=== PATIENT | female | born 1990 | race Caucasian/White ===

== ENCOUNTER 2016-09-08 08:19 | Emergency (ER) | payer MEDICAID, OTHER ==
[~2016-09-08] VITALS: Ht 170.2 cm; Wt 62.0 kg
[~2016-09-08 08:19] MED LIST: LO LTAB; METO10TA PO; OMEP40CA2 PO; PREN1PAK2 PO
[2016-09-08 08:21] VITALS: BP 177/94; PULSE 79; RESP 17; TEMP 97.9; O2SAT 98
--- NOTE | 2016-09-08 08:55 | PD ---
HPI Chief Complaint: Related Problem Time Seen by Provider: 08:28 Travel History International Travel<30 days: No Contact w/Intl Traveler<30days: No Traveled to known affect area: No History of Present Illness HPI This is a 26-year-old Ab1 who is at 10 weeks by dates, who presents today with complaints of vaginal bleeding. The patient reports that she and her were having intercourse when she noted blood in her vagina when she went to use the restroom. She reports that she passed some stringy blood as well as a clot. She denies any pelvic cramping. Through records, we note her blood type to be A+. She denies any dysuria, urgency, frequency. She had bleeding previously with her previous . No other complaints time my examination. PFSH Past Medical History Cancer: No Cardiovascular Problems: No Diminished Hearing: No Endocrine: No Gastrointestinal Disorders: No Genitourinary: No Heparin Induced Thrombocytopen: No Immune Disorder: No Implanted Vascular Access Dvce: No Musculoskeletal: No Neurologic: No Psychiatric: No Reproductive: No Respiratory: No Immunizations Current: Yes Pancreatitis: Yes Sickle Cell Disease: No ?: LMP: 06/05/16 : 2 Miscarriage: 2 Past Surgical History Abdominal Surgery: No AICD: No Arteriovenous Shunt: No Cardiac Surgery: No Cholecystectomy: Yes Ear Surgery: No Endocrine Surgery: Yes (GALL BLADDER) Eye Surgery: No Genitourinary Surgery: No Gynecologic Surgery: No Insulin Pump: No Joint Replacement: No Neurologic Surgery: No Oral Surgery: No Pacemaker: No Tonsillectomy: Yes (with adnoids) Tympanostomy Tube: Yes Other Surgery: Yes (pancreatic stent then removed) Social History Alcohol Use: No Tobacco Use: No Substance Use: No Allergies-Medications (Allergen,Severity, Reaction): Coded Allergies: No Known Allergies (Unverified , 04/23/16) Reported Meds & Prescriptions Reported Meds & Active Scripts Active Review of Systems Except as stated in HPI: all other systems reviewed are Neg General / Constitutional: No: Fever, Chills Gastrointestinal: No: Nausea, Vomiting, Abdominal Pain Genitourinary: Positive: Vaginal Bleeding, No: Frequency, Dysuria, Pelvic Pain , Discharge Physical Exam Narrative GENERAL: Well-nourished, well-developed patient. SKIN: Warm and dry. HEAD: Normocephalic. EYES: No scleral icterus. No injection or drainage. NECK: Supple, trachea midline. GASTROINTESTINAL: Abdomen soft, non-tender, nondistended. MUSCULOSKELETAL: No cyanosis, or edema. GENITOURINARY: Normal external genitalia without lesions or erythema. Vaginal vault with small amount of bright blood. Cervical os was closed. Data Data Last Documented VS Vital Signs Date Time Temp Pulse Resp B/P Pulse Ox O2 Delivery O2 Flow Rate FiO2 09/08/16 08:21 97.9 79 17 177/94 98 Orders Beta Hcg (Quant/Titer) (09/08/16 08:45) Complete Blood Count With Diff (09/08/16 08:45) Urinalysis - C+S If Indicated (09/08/16 08:45) Iv Access Insert/Monitor (09/08/16 08:45) Us Pelvis (Ques Pr/Ect)W Trans (09/08/16 09:22) Labs Laboratory Tests Test 09/08/16 08:38 White Blood Count 7.2 TH/MM3 Red Blood Count 4.09 MIL/MM3 Hemoglobin 12.1 GM/DL Hematocrit 34.9 % Mean Corpuscular Volume 85.3 FL Mean Corpuscular Hemoglobin 29.7 PG Mean Corpuscular Hemoglobin 34.8 % Concent Red Cell Distribution Width 12.8 % Platelet Count 246 TH/MM3 Mean Platelet Volume 9.3 FL Neutrophils (%) (Auto) 62.2 % Lymphocytes (%) (Auto) 29.6 % Monocytes (%) (Auto) 4.9 % Eosinophils (%) (Auto) 2.8 % Basophils (%) (Auto) 0.5 % Neutrophils # (Auto) 4.5 TH/MM3 Lymphocytes # (Auto) 2.1 TH/MM3 Monocytes # (Auto) 0.3 TH/MM3 Eosinophils # (Auto) 0.2 TH/MM3 Basophils # (Auto) 0.0 TH/MM3 CBC Comment DIFF FINAL Differential Comment Urine Color YELLOW Urine Turbidity CLEAR Urine pH 8.0 Urine Specific [place] 1.008 Urine Protein NEG mg/dL Urine Glucose (UA) NEG mg/dL Urine Ketones NEG mg/dL Urine Occult Blood MOD Urine Nitrite NEG Urine Bilirubin NEG Urine Urobilinogen LESS THAN 2.0 MG/DL Urine Leukocyte Esterase NEG Urine RBC 94 /hpf Urine WBC 1 /hpf Urine Squamous Epithelial <1 /hpf Cells Urine Bacteria RARE /hpf Microscopic Urinalysis Comment CULT NOT INDICATED Human Chorionic Gonadotropin, 74248 MIU/ML Quant MDM Medical Decision Making Medical Screen Exam Complete: Yes Emergency Medical Condition: Yes Differential Diagnosis Threatened versus incomplete versus missed Narrative Course 18-year-old Ab1, who presents today with complaints of vaginal bleeding. She and her were having intercourse when he noted blood. The patient denies any abdominal cramping. There is no reported dysuria urgency or frequency. The patient had a previous miscarriage in her first . Second was successful. Ultrasound shows a viable intrauterine . There is a subchorionic hemorrhage noted. I discussed this with both patient and her . I stated that this could progress however oftentimes it does not. Recommended pelvic rest until seen by OB physician. Her blood type is Rh+ and therefore she does not need Tabitha. She is instructed to follow up with the OB physician. She is instructed to return if she does any increasing bleeding, abdominal cramps, or any other reason that concerned her. Diagnosis Primary Impression: Threatened miscarriage in early Additional Impression: Subchorionic hemorrhage in first trimester Additional Instructions: Pelvic rest. Follow up with [facility] physician, call Saturday for appointment. Hernia if increased pain, increased bleeding, or any other reason that concerned her. Avoid heavy lifting Disposition: 01 DISCHARGE HOME Condition: Stable Jose F Lee MD Sep 08, 2016 08:55
[2016-09-08 09:09] LABS: AUTOMATED NEUTROPHIL # 4.5 TH/MM3 (1.8-7.7); BASOPHIL % 0.5 % (0.0-2.0); EOSINOPHIL # 0.2 TH/MM3 (0-0.4); EOSINOPHIL % 2.8 % (0.0-4.0); HEMATOCRIT 34.9 % (35.0-46.0); HEMO FLAGS DIFF FINAL; LYMPH % 29.6 % (9.0-44.0); LYMPHOCYTE # 2.1 TH/MM3 (1.0-4.8); MEAN CELL VOLUME 85.3 FL (80.0-100.0); MEAN CORPUSCULAR HEMOGLOBIN 29.7 PG (27.0-34.0); MEAN CORPUSCULAR HGB CONC 34.8 % (32.0-36.0); MONO % 4.9 % (0.0-8.0); NEUT % 62.2 % (16.0-70.0); PLATELET COUNT 246 TH/MM3 (150-450); RED BLOOD COUNT 4.09 MIL/MM3 (4.00-5.30); RED CELL DISTRIBUTION WIDTH 12.8 % (11.6-17.2); WHITE BLOOD COUNT 7.2 TH/MM3 (4.0-11.0)
[2016-09-08 09:15] LABS: BACTERIA, URINE RARE /hpf; BLOOD, URINE MOD (NEG); COMMENT (UR) CULT NOT INDICATED; CULTURE IF INDICATED CULT NOT INDICATED; GLUCOSE,URINE NEG (NEG); KETONE, URINE NEG (NEG); NITRITE,URINE NEG (NEG); SQUAMOUS EPITHELIAL CELL URINE <1 /hpf (0-5); URINE COLOR YELLOW (YELLW/STRAW)
[2016-09-08 09:45] LABS: BETA HCG QUANT 43873 MIU/ML (0-5)
--- NOTE | 2016-09-08 12:48 | RADRPT ---
EXAM DATE/TIME: 09/08/2016 10:49 [facility] COMPARISON: No previous studies available for comparison. INDICATIONS : Bleeding with . LAB(S): Beta-hC MEDICAL HISTORY : . Pancreatitis. Left eye injury. Miscarriage. SURGICAL HISTORY : Tonsillectomy. Cholecystectomy. tympanostomy tubes. Pancreatic stent placement and removal. ENCOUNTER: Initial ACUITY: 1 day PAIN SCORE: 1/10 LOCATION: Bilateral pelvis MEASUREMENTS: UTERUS: 11.5 x 9.2 x 7.3 cm ENDOMETRIAL STRIPE: 4 mm RIGHT OVARY: 2.9 x 1.7 x 2.1 cm LEFT OVARY: 2.8 x 1.7 x 2.0 cm FINDINGS: Gestational sac, yolk sac and pole noted in the uterine cavity. The crown-rump length is approx imately 3.4 cm which corresponds to a gestational age of 10 weeks 2 days. heart tones are demon strated. There is an approximately 3.6 x 2.8 x 3.0 cm heterogeneous fluid collection adjacent to the gestational sac typical of a subacute subchorionic hemorrhage. Ovaries are within normal limits. No free fluid. CONCLUSION: Single, viable intrauterine at 10 weeks 2 days gestational age complicated by a moderate-si zed subchorionic hemorrhage. Normal ovaries. No evidence of ectopic. Roland Farley MD on September 08, 2016 at 12:45 Board Certified Radiologist. This report was verified electronically.
[2016-09-19] MEDS ORDERED: FAMO20TA2 PO (10:13)
[2016-09-19] MEDS ORDERED: PREN1CAP7 PO (10:13)
[2016-11-21] MEDS ORDERED: NITR1CAP36 PO (09:44)
[2017-01-16] MEDS ORDERED: DIFL150T PO (09:59)
== END 2016-09-08 11:40 | disposition home or self-care (01) ==
LOC: NEPC 08:19
DX: O20.0 Threatened abortion (principal); Z3A.10 10 weeks gestation of pregnancy
CPT/HCPCS: 76700; 81001; 84702; 85025

== ENCOUNTER 2016-11-04 18:12 | Emergency (ER) | payer MEDICAID ==
[~2016-11-04 18:12] MED LIST changes: +FAMO20TA2 PO; -LO LTAB; -METO10TA PO; -OMEP40CA2 PO; +PREN1CAP7 PO; -PREN1PAK2 PO
--- NOTE | 2016-11-04 19:02 | PD ---
HPI Chief Complaint Lower abdominal pain and pressure Date Seen: Nov 04, 2016 Time Seen: 18:45 Travel History International Travel<30 Days: No Contact w/Intl Traveler<30Days: No Known Affected Area: No History of Present Illness HPI 26-year-old 2 para 1 at 19+ weeks gestation who has a history of a delivery at 32 weeks. She presented this evening feeling low pressure and was concerned AB this was evidence of early labor. She denies any bleeding , leakage of fluid, vaginal discharge. She reports movement on a daily basis. No dysuria hematuria or frequency. No diarrhea or vomiting or constipation. Para: 1 : 2 History Past Medical History Narrative Medical No chronic diseases Medical History: Denies Significant Hx Obstetric History Obstetric History 1 prior 32 week delivery secondary to labor [facility] Her course has been uncomplicated. They're attempting to initiate progesterone therapy for history of labor but this has not started yet. Past Surgical History Narrative Surgical Cholecystectomy, eye surgery Family History Family History: Negative Social History Alcohol Use: No Tobacco Use: No Substance Abuse: No Allergies-Medications (Allergen,Severity, Reaction): Coded Allergies: No Known Allergies (Unverified , 11/04/16) Home Meds Active Scripts W/O Vit A W/ Fe Fumar (Citranatal [place])27-1-260 Mg Cap1 Cap PO DAILY #30 CAP Ref 0 Prov:Ariel Oquendo MD 09/19/16 Famotidine 20 Mg Tab20 Mg PO BID PRN (HEARTBURN) #60 TAB Ref 0 Prov:Ariel Oquendo MD 09/19/16 Review of Systems Except as stated in HPI: all other systems reviewed are Neg Physical Exam Narrative GENERAL: Well-nourished, well-developed patient. SKIN: Warm and dry. HEAD: Normocephalic and atraumatic. EYES: No scleral icterus. No injection or drainage. ENT: No nasal drainage noted. Mucous membranes pink. Airway patent. NECK: Supple, trachea midline. No JVD. CARDIOVASCULAR: Regular rate and rhythm without murmurs, gallops, or rubs. RESPIRATORY: Breath sounds equal bilaterally. No accessory muscle use. ABDOMEN/GI: Abdomen soft, non-tender, bowel sounds present, no rebound, no guarding Gravid to [-] weeks size Fundal Height: [U -1-] GENITOURINARY: External Genitalia: intact and normal in appearance BUS glands: [-Normal] Cervix: [-Closed] Dilatation: [-Closed] Effacement: [Long-] Station: [-High] Presentation: [-] Membranes: [intact or ruptured] Uterine Contractions: [-] FHT's: Category: [-] Baseline: [140s-] Reactive: [-] Variability: [-] Decels: [-] EXTREMITIES: No cyanosis or edema. BACK: Nontender without obvious deformity. No CVA tenderness. NEUROLOGICAL: Awake and alert. Motor and sensory grossly within normal limits. Five out of 5 muscle strength in all muscle groups. Normal speech. Data Data Vital Signs Reviewed: Yes MDM Medical Record Reviewed: Yes Narrative Course / MDM Assessment: 19 week intrauterine with lower abdominal pressure and normal examination Plan: Reassurance was given regarding her symptoms today. I encouraged her to continue to pursue to the 17 hydroxyprogesterone treatment. Precautions were also reviewed regarding labor. Diagnosis Diagnosis: Primary Impression: 19 weeks gestation of Additional Impression: Lower abdominal pain Disposition: 01 DISCHARGE HOME Condition: Good Patient Instructions: General Instructions Departure Forms: Tests/Procedures Anurag Jaramillo MD Nov 04, 2016 19:02
[2016-11-21] MEDS ORDERED: NITR1CAP36 PO (09:44)
[2017-01-16] MEDS ORDERED: DIFL150T PO (09:59)
== END 2016-11-04 19:00 | disposition home or self-care (01) ==
LOC: HOBED 18:12
DX: R10.30 Lower abdominal pain, unspecified (principal); O26.92 Pregnancy related conditions, unspecified, second trimester; Z3A.19 19 weeks gestation of pregnancy
CPT/HCPCS: 99284

== ENCOUNTER 2016-11-13 09:46 | Observation (INO) | payer MEDICAID ==
[2016-11-13] VITALS (11 sets, daily range): BP systolic 99–137; BP diastolic 52–83; PULSE 58–77; RESP 17–18; TEMP 97.3–98.4
[~2016-11-13] VITALS: Ht 170.2 cm; Wt 68.0 kg
[~2016-11-13 09:46] MED LIST changes: -ACET325T PO; -DIFL150T PO; -FAMO1TAB37 PO; -NITR1CAP36 PO; -ONDA1TAB16 PO
--- NOTE | 2016-11-13 10:07 | PD ---
HPI Chief Complaint cervical insufficiency Date Seen: Nov 13, 2016 Travel History International Travel<30 Days: No Contact w/Intl Traveler<30Days: No History of Present Illness HPI Ms. Hope is a 26 yo at 20 3/7 weeks (03/30/2017) who presents from [facility] due to finding of cervical insufficiency. [At [facility], patient found to have cervical length of 0.5cm; funneling measures 0.98 cm. Sterile speculum used and patient found to have cervical dilation of 0.5cm, with membranes to the external os.] Patient reports she is doing well at this time. Patient reports mild abdominal pain after ultrasound today but denies vaginal bleeding, loss of vaginal fluid, or other symptoms at this time. Patient does not report headache, visual changes, nausea/vomiting, chest pain, shortness of breath, dysuria, or leg swelling. Patient reports no abnormalities. Patient states that bimanual exam was performed several weeks ago and found to have a normal appearing, closed cervix. Patient had prior delivery at 34 weeks approximately 1 year ago. Para: 1 : 3 : 1 History Past Medical History Medical History: Denies Significant Hx Obstetric History Obstetric History 1-year-old born at 34 weeks Past Surgical History Surgical History: No Previous Surgery Family History Family History: Negative Social History Alcohol Use: No Tobacco Use: No Substance Abuse: No Allergies-Medications (Allergen,Severity, Reaction): Coded Allergies: No Known Allergies (Unverified , 11/04/16) Home Meds Active Scripts W/O Vit A W/ Fe Fumar (Citranatal [place])27-1-260 Mg Cap1 Cap PO DAILY #30 CAP Ref 0 Prov:Ariel Oquendo MD 09/19/16 Famotidine 20 Mg Tab20 Mg PO BID PRN (HEARTBURN) #60 TAB Ref 0 Prov:Ariel Oquendo MD 09/19/16 Review of Systems General / Constitutional: No: Fever, Chills Eyes: No: Blurred Vision HENT: No: Headaches Cardiovascular: No: Chest Pain or Discomfort Respiratory: No: Short of Breath Gastrointestinal: Abdominal Pain (mild lower abdominal pressure), No: Nausea, Diarrhea Genitourinary: No: Dysuria Physical Exam BP121/76 HR 71 RR 16 T 98.2 Narrative GENERAL: Well-nourished, well-developed patient. SKIN: Warm and dry. HEAD: Normocephalic and atraumatic. EYES: No scleral icterus. No injection or drainage. ENT: No nasal drainage noted. Mucous membranes pink. Airway patent. NECK: Supple, trachea midline. No JVD. CARDIOVASCULAR: Regular rate and rhythm without murmurs. RESPIRATORY: CTAB, normal rate ABDOMEN/GI: Abdomen soft, non-tender, bowel sounds present, no rebound, no guarding. Gravid EXTREMITIES: No cyanosis or edema NEUROLOGICAL: Awake and alert. Motor and sensory function grossly within normal limits. GENITOURINARY: (per Perinatology exam) Cervix: Dilatation: 0.5cm Presentation: Breech Membranes: Intact Uterine Contractions: None FHT's: FHR 140's Data Data Vital Signs Reviewed: Yes MDM Medical Record Reviewed: Yes Narrative Course / MDM Ms. Hope is a 26 yo at 20 3/7 weeks (03/30/2017) who presents from [facility] -FHT 140 -No contractions -Cervical insufficiency: -Cervical length 0.5cm,funneling measures 0.98 cm. No previa -Sterile speculum used and patient found to have cervical dilation of 0.5cm, with membranes to the external os -History of delivery at 34 weeks Plan: -Case discussed between Dr. Echeverria and Dr. Cheng: Will plan for patient to be admitted for cerclage placement by Dr. Echeverria tomorrow. Bhupendra Maria MD R2 Nov 13, 2016 10:07
[2016-11-13] MEDS ORDERED: SODIUM CHLORIDE 0.9% FLUSH 10 ML FLUSH IV FLUSH PRN (10:30)
[2016-11-13 11:51] LABS: AUTOMATED NEUTROPHIL # 5.6 TH/MM3 (1.8-7.7); BASOPHIL % 0.4 % (0.0-2.0); EOSINOPHIL # 0.1 TH/MM3 (0-0.4); HEMATOCRIT 29.2 % (35.0-46.0); HEMO FLAGS DIFF FINAL; LYMPH % 23.9 % (9.0-44.0); LYMPHOCYTE # 1.9 TH/MM3 (1.0-4.8); MEAN CELL VOLUME 86.3 FL (80.0-100.0); MEAN CORPUSCULAR HEMOGLOBIN 29.4 PG (27.0-34.0); MEAN CORPUSCULAR HGB CONC 34.1 % (32.0-36.0); MONO % 5.2 % (0.0-8.0); NEUT % 69.5 % (16.0-70.0); PLATELET COUNT 179 TH/MM3 (150-450); RED BLOOD COUNT 3.38 MIL/MM3 (4.00-5.30); RED CELL DISTRIBUTION WIDTH 12.7 % (11.6-17.2); WHITE BLOOD COUNT 8.1 TH/MM3 (4.0-11.0)
[2016-11-13 12:08] LABS: BICARBONATE 22.5 MEQ/L (21.0-32.0); POTASSIUM 3.9 MEQ/L (3.5-5.1)
[2016-11-13 12:23] LABS: BACTERIA, URINE RARE /hpf; BLOOD, URINE NEG (NEG); COMMENT (UR) CULT NOT INDICATED; CULTURE IF INDICATED CULT NOT INDICATED; GLUCOSE,URINE NEG (NEG); KETONE, URINE NEG (NEG); NITRITE,URINE NEG (NEG); PH, URINE 7.5 (5.0-8.5); SQUAMOUS EPITHELIAL CELL URINE 1 /hpf (0-5); URINE COLOR YELLOW (YELLW/STRAW)
[2016-11-13] MEDS: ACETAMINOPHEN 325 MG TAB PO PRN ×2 (16:37→22:47)
[2016-11-13] MEDS ORDERED: ceFAZolin 2 GM PREMIX 50 ML IV SCH (19:00)
[2016-11-13] MEDS: SODIUM CHLORIDE 0.9% FLUSH 10 ML FLUSH IV FLUSH SCH (21:00)
[2016-11-13] MEDS: ZOLPIDEM TARTRATE 10 MG TAB PO PRN (22:47)
[2016-11-14] VITALS (18 sets, daily range): BP systolic 91–122; BP diastolic 40–66; PULSE 60–66; RESP 16–18; TEMP 97.2–98; O2SAT 100
--- NOTE | 2016-11-14 08:55 | PD.OB.ANTE ---
Subjective Interval History Pt lying in bed this morning. Reports doing well this morning. No new complaints. Antepartum ROS: Reports: movement normal, Denies: New complaints, Loss of fluid, Vaginal bleeding, Contractions, Other Objective Vital Signs Vital Signs Date Time Temp Pulse Resp B/P Pulse Ox O2 Delivery O2 Flow Rate FiO2 11/14/16 07:36 17 11/14/16 07:34 60 115/49 11/14/16 05:40 16 11/14/16 02:24 16 11/14/16 00:13 16 11/13/16 22:50 77 99/52 11/13/16 22:49 98.4 11/13/16 22:49 18 11/13/16 22:07 18 11/13/16 19:28 97.9 11/13/16 19:24 69 103/52 11/13/16 18:48 17 11/13/16 18:18 73 137/83 11/13/16 18:00 97.7 11/13/16 15:04 69 123/64 11/13/16 15:00 97.5 18 11/13/16 11:35 58 120/62 11/13/16 11:15 97.3 17 Lab & Micro Results Test 11/13/16 11/13/16 10:05 11:13 Urine Color YELLOW Urine Turbidity CLEAR Urine pH 7.5 Urine Specific [place] 1.013 Urine Protein NEG mg/dL Urine Glucose (UA) NEG mg/dL Urine Ketones NEG mg/dL Urine Occult Blood NEG Urine Nitrite NEG Urine Bilirubin NEG Urine Urobilinogen LESS THAN 2.0 MG/DL Urine Leukocyte Esterase TRACE Urine RBC LESS THAN 1 /hpf Urine WBC LESS THAN 1 /hpf Urine Squamous Epithelial 1 /hpf Cells Urine Bacteria RARE /hpf Microscopic Urinalysis Comment CULT NOT INDICATED White Blood Count 8.1 TH/MM3 Red Blood Count 3.38 MIL/MM3 Hemoglobin 9.9 GM/DL Hematocrit 29.2 % Mean Corpuscular Volume 86.3 FL Mean Corpuscular Hemoglobin 29.4 PG Mean Corpuscular Hemoglobin 34.1 % Concent Red Cell Distribution Width 12.7 % Platelet Count 179 TH/MM3 Mean Platelet Volume 8.6 FL Neutrophils (%) (Auto) 69.5 % Lymphocytes (%) (Auto) 23.9 % Monocytes (%) (Auto) 5.2 % Eosinophils (%) (Auto) 1.0 % Basophils (%) (Auto) 0.4 % Neutrophils # (Auto) 5.6 TH/MM3 Lymphocytes # (Auto) 1.9 TH/MM3 Monocytes # (Auto) 0.4 TH/MM3 Eosinophils # (Auto) 0.1 TH/MM3 Basophils # (Auto) 0.0 TH/MM3 CBC Comment DIFF FINAL Differential Comment Sodium Level 138 MEQ/L Potassium Level 3.9 MEQ/L Chloride Level 107 MEQ/L Carbon Dioxide Level 22.5 MEQ/L Anion Gap 9 MEQ/L Blood Urea Nitrogen 7 MG/DL Creatinine 0.37 MG/DL Estimat Glomerular Filtration 208 ML/MIN Rate Random Glucose 78 MG/DL Calcium Level 8.1 MG/DL Blood Type A POSITIVE Antibody Screen NEGATIVE Physical Exam GENERAL: Well-nourished, well-developed patient. CARDIOVASCULAR: Regular rate and rhythm without murmurs, gallops, or rubs. RESPIRATORY: Breath sounds equal bilaterally. No accessory muscle use. ABDOMEN/GI: Abdomen soft, non-tender. Gravid to 20 weeks EXTREMITIES: No cyanosis or edema, non-tender, without signs of DVT. Assessment and Plan Assessment and Plan Ms. Hope is a 26 yo at 20/4 weeks admitted for cervical insufficiency -Cervical insufficiency: -Cervical length 0.5cm,funneling measures 0.98 cm. No previa -Sterile speculum used and patient found to have cervical dilation of 0.5cm, with membranes to the external os -History of delivery at 34 weeks -Scheduled for cerclage by Dr. Echeverria today at 4pm -Continue to monitor John Paul Newman MD R1 Nov 14, 2016 08:55 with membranes to the external os -History of delivery at 34 weeks -Scheduled for cerclage by Dr. Echeverria today at 4pm -Continue to monitor John Paul Newman MD R1 Nov 14, 2016 08:55 John Paul Newman MD R1 Nov 14, 2016 08:55
[2016-11-14] MEDS: SODIUM CHLORIDE 0.9% FLUSH 10 ML FLUSH IV FLUSH SCH (09:00)
[2016-11-14] MEDS ORDERED: ONDANSETRON HCL 4 MG/2 ML VIAL ONE (10:41)
[2016-11-14] MEDS: ONDANSETRON HCL 4 MG/2 ML VIAL IV PRN ×2 (11:00→18:01)
[2016-11-14] MEDS ORDERED: ONDANSETRON HCL 4 MG/2 ML VIAL IV PUSH ONE (12:37)
[2016-11-14] MEDS ORDERED: LACTATED RINGER'S 1000 ML INJ 1,000 ML IV ONE (12:37)
[2016-11-14] MEDS: ACETAMINOPHEN 325 MG TAB PO PRN (20:37)
[2016-11-14] MEDS: ZOLPIDEM TARTRATE 10 MG TAB PO PRN (23:17)
[2016-11-15 02:17] VITALS: RESP 16; TEMP 97.5
[2016-11-15 02:18] VITALS: BP 99/39; PULSE 65
[2016-11-15] MEDS: ACETAMINOPHEN 325 MG TAB PO PRN (06:05)
[2016-11-15 07:10] VITALS: TEMP 97.7
[2016-11-15 07:11] VITALS: BP 117/55; PULSE 63; RESP 18
--- NOTE | 2016-11-15 08:54 | PD.OB.ANTE ---
Subjective Interval History Pt lying in bed, doing well this morning. S/p cerclage placement late yesterday afternoon. Stated she had a lot of lower back pain last night and a headache most of the day. Today, she is feeling better, headache resolved. Still having constant, achy lower back pain. Denies any contractions. No chest pain, SOB, leg pain. Some spotting. No loss of fluids. Antepartum ROS: Reports: movement normal, Denies: New complaints, Loss of fluid, Vaginal bleeding, Contractions (John Paul Newman MD R1) Objective Vital Signs Vital Signs Date Time Temp Pulse Resp B/P Pulse Ox O2 Delivery O2 Flow Rate FiO2 11/15/16 07:11 63 18 117/55 11/15/16 07:10 97.7 11/15/16 02:18 65 99/39 11/15/16 02:17 97.5 16 11/14/16 23:09 97.6 16 11/14/16 23:09 66 112/66 11/14/16 19:38 98.0 16 11/14/16 19:30 66 91/42 11/14/16 19:00 64 92/40 11/14/16 18:30 64 103/55 11/14/16 18:02 18 11/14/16 18:00 60 122/65 11/14/16 17:52 61 116/59 11/14/16 17:51 97.2 18 11/14/16 17:30 98.0 73 18 94/54 100 Room Air 11/14/16 17:15 57 18 102/60 100 Room Air 11/14/16 17:00 53 18 105/59 100 Room Air 11/14/16 16:45 58 18 103/54 100 Room Air 11/14/16 16:30 57 18 108/66 100 Room Air 11/14/16 16:15 98.0 64 18 115/58 100 Room Air 11/14/16 12:46 17 11/14/16 12:09 97.3 11/14/16 12:08 62 112/62 Physical Exam GENERAL: Well-nourished, well-developed patient. CARDIOVASCULAR: Regular rate and rhythm without murmurs, gallops, or rubs. RESPIRATORY: Breath sounds equal bilaterally. No accessory muscle use. ABDOMEN/GI: Abdomen soft, non-tender. Gravid to 20 weeks GENITOURINARY: External Genitalia: intact and normal in appearance Uterine Contractions: none EXTREMITIES: No cyanosis or edema, non-tender, without signs of DVT. (John Paul Newman MD R1) Assessment and Plan Assessment and Plan Ms. Hope is a 26 yo at 20/5 weeks admitted for cervical insufficiency Stable overnight. Vital signs stable. Minimal spotting, no loss of fluids. No contractions. Cervical insufficiency: -Cervical length 0.5cm,funneling measures 0.98 cm. No previa -Sterile speculum used and patient found to have cervical dilation of 0.5cm, with membranes to the external os -History of delivery at 34 weeks -s/p Cerclage 11/14; pt tolerated procedure well -Continue bed rest per Dr. Oquendo's recommendations; no heavy lifting, sexual intercourse -F/u with Dr. Oquendo -Continue care (John Paul Newman MD R1) Assessment and Plan 20w5d s/p emergency/rescue cerclage Overnight doing well LLANES resolved, Anesthesia evaluated for spinal LLANES Mild back pain No UC, LOF. Scant spotting post-op D/c home F/u with [facility] handout given on cerclage Precautions reviewed. D/w Dr. Maria and Dr. Newman (Myranda Perez MD) John Paul Newman MD R1 Nov 15, 2016 08:54 Myranda Perez MD Nov 15, 2016 09:12
[2016-11-15] MEDS ORDERED: ACET325T PO (08:59)
--- NOTE | 2016-11-15 09:01 | HHI.DCPOC ---
Discharge Care Plan Diagnosis: (1) Cervical cerclage suture present (2) Cervical insufficiency during , antepartum Goals to Promote Your Health * To prevent worsening of your condition and complications * To maintain your health at the optimal level Directions to Meet Your Goals Take your medications as prescribed Follow your dietary instruction Follow activity as directed Keep your appointments as scheduled Take your immunizations and boosters as scheduled If your symptoms worsen call your PCP, if no PCP go to Urgent Care Center or Emergency Room Smoking is Dangerous to Your Health. Avoid second hand smoke Call the 24-hour hour crisis hotline for domestic abuse at John Paul Newman MD R1 Nov 15, 2016 09:01 Myranda Perez MD Nov 15, 2016 09:12
--- NOTE | 2016-11-16 13:15 | MP ---
cc: ARIEL OQUENDO MD DATE OF SURGERY: 11/13/2016 PREOPERATIVE DIAGNOSIS Cervical incontinence. POSTOPERATIVE DIAGNOSIS Cervical incontinence. OPERATION Vaginal cerclage. SURGEON Azra ANESTHESIA Spinal. ESTIMATED BLOOD LOSS Minimal. FINDINGS Consistent with cervical incontinence. LAYER OUT None. COMPLICATIONS None. SPECIMEN None. DETAILS OF PROCEDURE The patient was prepped and draped in the dorsal lithotomy position. A weighted speculum was placed in the posterior vaginal vault and then the cervix was visualized. The decision was made to place two rows of #1 Prolene suture material. The first row was placed in the posterior position of the cervix. A circumferential suture was used and the ends were tied in the 12 o'clock position. Next, approximately 0.5 cm from that first row of #1 Prolene a second row was placed, again using a circumferential stitch and placing the knot in also the 12 o'clock position. After good hemostasis was noted the weighted speculum was removed and the patient returned to the recovery room in stable condition. Ariel Oquendo MD JSG/BT /4:16 PM /12:58 PM
[2016-11-21] MEDS ORDERED: NITR1CAP36 PO (09:44)
[2017-01-16] MEDS ORDERED: DIFL150T PO (09:59)
== END 2016-11-15 09:39 | disposition home or self-care (01) ==
LOC: HOBED 09:46 → H2EA 10:23
PROVIDERS: ADMIT Obstetrics & Gynecology Maternal & Fetal Medicine; ATTEND Obstetrics & Gynecology Maternal & Fetal Medicine
DX: O34.32 Maternal care for cervical incompetence, second trimester (principal); O09.212 Supervision of pregnancy with history of pre-term labor, second trimester; Z3A.20 20 weeks gestation of pregnancy
CPT/HCPCS: 00948; 59320; 80048; 81001; 84112; 85025; 86850; 86900; 86901; 99284; G0378; J0690; J2405; J3010; J7120

== ENCOUNTER → 2016-11-13 | Outpatient (CLI) | payer MEDICAID ==
[~2016-11-13] MED LIST changes: +ACET325T PO; +DIFL150T PO; +FAMO1TAB37 PO; +NITR1CAP36 PO; +ONDA1TAB16 PO
== END ==
LOC: HPND 07:31
PROVIDERS: ATTEND Obstetrics & Gynecology
DX: O09.212 Supervision of pregnancy with history of pre-term labor, second trimester (principal); Z3A.00 Weeks of gestation of pregnancy not specified
CPT/HCPCS: 76805; 76817

== ENCOUNTER 2016-11-22 09:41 | Emergency (ER) | payer MEDICAID ==
[~2016-11-22] VITALS: Ht 170.2 cm; Wt 67.1 kg
[~2016-11-22 09:41] MED LIST changes: +ACET325T PO; +NITR1CAP36 PO
--- NOTE | 2016-11-22 10:35 | PD ---
HPI Chief Complaint pelvic pain Date Seen: November 22, 2016 Time Seen: 10:13 Travel History International Travel<30 Days: No Contact w/Intl Traveler<30Days: No History of Present Illness HPI 26 y/o at 21/5 weeks presents for bilateral pelvic pain. Of note, pt had cerclage placement on 11/13/[address] Oquendo. Since then, she has been on bedrest and doing ok. An hour before arrival, she developed bilateral pelvic pain that lasted a few minutes. She also felt like she couldn't catch her breath during these episodes. Since arriving to ED, she states the pain has stopped. Otherwise, denies other symptoms. Denies any vaginal bleeding, loss of fluids, discharge. Feels good movement. Denies any radiation of the pain down to legs or to back. No fever/chills, chest pain, SOB, leg pain. No headache , changes in vision. Since cerclage placement, she has been on strict bedrest except for bathroom. Does state she has been constipated lately with hesitancy with bowel movements. She did [facility] appointment with [facility], per pt, was reassuring without complaints. Was prescribed an antibiotic for UTI , unsure of which one. Para: 1 : 3 History Past Medical History Medical History: Denies Significant Hx Obstetric History Obstetric History - at 34 weeks Past Surgical History Surgical History: No Previous Surgery Family History Family History: Negative Social History Alcohol Use: No Tobacco Use: No Substance Abuse: No Allergies-Medications (Allergen,Severity, Reaction): Coded Allergies: No Known Allergies (Unverified , 11/22/16) Home Meds Active Scripts Acetaminophen 325 Mg [id number] Mg PO Q4H PRN (PAIN SCALE 1 TO 10) #30 TAB Prov:John Paul Newman MD R1 11/15/16 W/O Vit A W/ Fe Fumar (Citranatal [place])27-1-260 Mg Cap1 Cap PO DAILY #30 CAP Ref 0 Prov:Ariel Oquendo MD 09/19/16 Discontinued Scripts Nitrofurantoin Macrocrystal 100 Mg Atq113 Mg PO BID #10 CAP Ref 0 Prov:Ariel Oquendo MD 11/21/16 Famotidine 20 Mg Tab20 Mg PO BID PRN (HEARTBURN) #60 TAB Ref 0 Prov:Ariel Oquendo MD 09/19/16 Review of Systems General / Constitutional: Weight Gain, No: Fever, Weight Loss, Chills Eyes: No: Blurred Vision, Pain HENT: No: Headaches, Vertigo Cardiovascular: No: Irregular Rhythm, Palpitations Respiratory: No: Cough, Short of Breath Gastrointestinal: No: Nausea, Vomiting, Diarrhea, Abdominal Pain Genitourinary: Pelvic Pain, No: Urgency, Frequency, Dysuria, Hematuria, Incontinence, Discharge, Vaginal Bleeding Musculoskeletal: No: Limited ROM, Weakness, Edema Skin: No Rash, No Itching Neurologic: No: Weakness, Dizziness Psychiatric: No: Anxiety, Depression Physical Exam Narrative GENERAL: Well-nourished, well-developed patient. SKIN: Warm and dry. HEAD: Normocephalic and atraumatic. EYES: No scleral icterus. No injection or drainage. ENT: No nasal drainage noted. Mucous membranes pink. Airway patent. NECK: Supple, trachea midline. No JVD. CARDIOVASCULAR: Regular rate and rhythm without murmurs, gallops, or rubs. RESPIRATORY: Breath sounds equal bilaterally. No accessory muscle use. ABDOMEN/GI: Abdomen soft, non-tender, bowel sounds present, no rebound, no guarding Gravid to 21 weeks size GENITOURINARY: External Genitalia: intact and normal in appearance Cervix: posterior, soft; closed os, stitch in place; no bleeding/discharge Dilatation: closed Station: -2 Presentation: cephalic Membranes: intact Uterine Contractions: none FHT's: Category: 1 Baseline: 140 Reactive: yes Variability: moderate Decels: none EXTREMITIES: No cyanosis or edema. BACK: Nontender without obvious deformity. No CVA tenderness. NEUROLOGICAL: Awake and alert. Motor and sensory grossly within normal limits. Five out of 5 muscle strength in all muscle groups. Normal speech. Data Data Orders Vital Signs (Adult) .ON ADMISSION (11/22/16 10:23) ^ Labor Status (11/22/16 10:23) ^ Hydration (11/22/16 10:23) [facility] Medical Record Reviewed: Yes Interpretation(s) 26 y/o at 21 weeks presents with bilateral pelvic pain. Vitals stable. Category 1 FHT Cervical exam: Closed, soft, stitch in place. No bleeding/discharge. History and exam consistent with round ligament pain, could be related to UTI - Discharge home - Continue bed rest as instructed - Continue antibiotic for UTI - Can use tylenol PRN for pain - F/u with [facility] - For constipation, can use OTC stool softeners (colace, senokot, milk of mag, miralax, or glycerin suppository) - Return to ED if worsening symptoms associated with vaginal bleeding, loss of fluids, continual contractions. Diagnosis Diagnosis: Primary Impression: 21 weeks gestation of Additional Impression: Round ligament pain Disposition: 01 DISCHARGE HOME Condition: Stable Patient Instructions: General Instructions, Early Labor Signs (ED) Additional Instructions: - For constipation, can use OTC stool softeners (colace, senokot, milk of mag, miralax, or glycerin suppository) - Can use tylenol for pain control John Paul Newman MD R1 November 22, 2016 10:35
[2017-01-16] MEDS ORDERED: DIFL150T PO (09:59)
== END 2016-11-22 10:52 | disposition home or self-care (01) ==
LOC: HOBED 09:41
DX: O23.42 Unspecified infection of urinary tract in pregnancy, second trimester (principal); R10.2 Pelvic and perineal pain; K59.00 Constipation, unspecified; Z3A.21 21 weeks gestation of pregnancy
CPT/HCPCS: 99283

== ENCOUNTER → 2016-11-23 | Outpatient (CLI) | payer MEDICAID ==
[~2016-11-23] MED LIST changes: +DIFL150T PO; +FAMO1TAB37 PO; -FAMO20TA2 PO; -NITR1CAP36 PO; +ONDA1TAB16 PO
== END ==
LOC: HPND 09:13
PROVIDERS: ATTEND Obstetrics & Gynecology
DX: O34.32 Maternal care for cervical incompetence, second trimester (principal); O26.872 Cervical shortening, second trimester; Z3A.21 21 weeks gestation of pregnancy
CPT/HCPCS: 76815; 76817

== ENCOUNTER → 2016-12-07 | Outpatient (CLI) | payer MEDICAID | LOC: HPND 09:15 | PROVIDERS: ATTEND Obstetrics & Gynecology | DX: O34.32 Maternal care for cervical incompetence, second trimester (principal); O09.292 Supervision of pregnancy with other poor reproductive or obstetric history, second trimester; Z3A.23 23 weeks gestation of pregnancy | CPT/HCPCS: 76816; 76817 ==

== ENCOUNTER → 2016-12-19 | Outpatient (CLI) | payer MEDICAID ==
[~2016-12-19] MED LIST changes: +BETAMETHASONE SOD PHOS/ACETATE SUSP 30 MG/5 ML VIAL IM SCH
== END ==
LOC: HPND 10:14
PROVIDERS: ATTEND Obstetrics & Gynecology
DX: O09.213 Supervision of pregnancy with history of pre-term labor, third trimester (principal); O26.873 Cervical shortening, third trimester
CPT/HCPCS: 96372; J0702

== ENCOUNTER → 2016-12-20 | Outpatient (CLI) | payer MEDICAID ==
[~2016-12-20] MED LIST changes: -ACET325T PO; +BETAMETHASONE SOD PHOS/ACETATE SUSP 30 MG/5 ML VIAL IM ONE; -BETAMETHASONE SOD PHOS/ACETATE SUSP 30 MG/5 ML VIAL IM SCH
== END ==
LOC: HOBG 10:01
PROVIDERS: ATTEND Obstetrics & Gynecology
DX: O09.213 Supervision of pregnancy with history of pre-term labor, third trimester (principal); O26.873 Cervical shortening, third trimester; Z3A.00 Weeks of gestation of pregnancy not specified
CPT/HCPCS: 96372; J0702

== ENCOUNTER → 2016-12-21 | Outpatient (CLI) | payer MEDICAID ==
[~2016-12-21] MED LIST changes: -BETAMETHASONE SOD PHOS/ACETATE SUSP 30 MG/5 ML VIAL IM ONE
== END ==
LOC: HPND 07:59
PROVIDERS: ATTEND Obstetrics & Gynecology
DX: O35.2 Maternal care for (suspected) hereditary disease in fetus (principal); O09.212 Supervision of pregnancy with history of pre-term labor, second trimester; O34.32 Maternal care for cervical incompetence, second trimester; O26.872 Cervical shortening, second trimester; Z3A.25 25 weeks gestation of pregnancy
CPT/HCPCS: 76815; 76817

== ENCOUNTER → 2017-01-04 | Outpatient (CLI) | payer MEDICAID | LOC: HPND 08:57 | PROVIDERS: ATTEND Obstetrics & Gynecology | DX: O34.32 Maternal care for cervical incompetence, second trimester (principal); O26.872 Cervical shortening, second trimester; O09.212 Supervision of pregnancy with history of pre-term labor, second trimester; Z3A.27 27 weeks gestation of pregnancy | CPT/HCPCS: 76816; 76817 ==

== ENCOUNTER 2017-01-11 09:48 | Emergency (ER) | payer MEDICAID ==
[~2017-01-11] VITALS: Ht 170.2 cm; Wt 72.6 kg
[2017-01-11] VITALS (10 sets, daily range): PULSE 71–102
[~2017-01-11 09:48] MED LIST changes: -DIFL150T PO; -FAMO1TAB37 PO; -ONDA1TAB16 PO
[2017-01-11] MEDS ORDERED: FAMO1TAB37 PO (10:03)
--- NOTE | 2017-01-11 10:23 | PD ---
HPI Chief Complaint vomiting Date Seen: Jan 11, 2017 Time Seen: 10:21 (Marita Burleson MD R1) Travel History International Travel<30 Days: No Contact w/Intl Traveler<30Days: No Known Affected Area: No (Marita Burleson MD R1) History of Present Illness HPI Patient is a 26 year old at 28 and 6/7 weeks gestation, who presents to the OB ED with vomiting at 4 AM today. She states she has not had a repeat episode. She did also endorses diarrhea, called her OB provider who recommended she come in for evaluation. OB history is notable SAB as well as delivery at 34 weeks in 2014, has a cerclage placed for this . She denies leakage of fluid, vaginal bleeding, and contractions. She feels baby moving regularly. She denies LLANES/N/V/D/fever/sick contacts/SOB/calf pain/ dizziness/seeing spots. OB care is with [facility]. She denies any fevers, chills at home. 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 Cerclage recommended and placed at 20 weeks Betamethasone 2 on December 19June 1 Most recent US reviewed: Cervical length on 01/04/2017 was 2124mm with funneling with cerclage intact. (Marita Burleson MD R1) Family History Family History: Negative (Marita Burleson MD R1) Social History Alcohol Use: No Tobacco Use: No Substance Abuse: No (Marita Burleson MD R1) Allergies-Medications (Allergen,Severity, Reaction): Coded Allergies: No Known Allergies (Unverified , 11/22/16) Home Meds Active Scripts Ondansetron 4 Mg Tab4 Mg PO Q6HR PRN (NAUSEA) #30 TAB Prov:Marita Burleson MD R1 01/11/17 W/O Vit A W/ Fe Fumar (Citranatal [place])27-1-260 Mg Cap1 Cap PO DAILY #30 CAP Ref 0 Prov:Ariel Oquendo MD 09/19/16 Reported Medications Famotidine (Pepcid)20 Mg Tab10 Mg PO BID #60 TAB Ref 0 01/11/17 Review of Systems Except as stated in HPI: all other systems reviewed are Neg (Marita Burleson MD R1) Physical Exam Narrative GENERAL: Well-nourished, well-developed patient. SKIN: Warm and dry. Normal turgor. HEAD: Normocephalic and atraumatic. EYES: No scleral icterus. No injection or drainage. ENT: No nasal drainage noted. Mucous membranes pink. Airway patent. NECK: Supple, trachea midline. No JVD. CARDIOVASCULAR: Regular rate and rhythm without murmurs, gallops, or rubs. RESPIRATORY: Breath sounds equal bilaterally. No accessory muscle use. BREASTS: Bilateral exam showed no masses , no retractions, no nipple discharge. ABDOMEN/GI: Abdomen gravid, soft, non-tender, bowel sounds present, no rebound, no guarding GENITOURINARY: Deferred FHT's: Category: 1 Baseline:130 Reactive: to 140 Variability: mod Decels: absent EXTREMITIES: No cyanosis or edema. BACK: Nontender without obvious deformity. No CVA tenderness. NEUROLOGICAL: Awake and alert. Motor and sensory grossly within normal limits. Five out of 5 muscle strength in all muscle groups. Normal speech. (Marita Burleson MD R1) Data Data Vital Signs Reviewed: Yes (temp 98.4F, RR 18, P 92, BP 120/72) Orders Vital Signs (Adult) .ON ADMISSION (01/11/17 10:18) ^ Labor Status (01/11/17 10:18) ^ Hydration (01/11/17 10:18) Lactated Ringer's 1000 Ml Inj (Lr 1000 M (01/11/17 10:18) (Marita Burleson MD R1) MDM Medical Record Reviewed: Yes Narrative Course / MDM 26-year-old at 28 and 6/7 weeks who presents after 1 episode of vomiting and diarrhea this morning. The vomiting has resolved. Intrauterine , treated by threatened AB, cerclage placement at 20 weeks gestation: Category 1 tracing No contractions noted on monitor Cerclage noted to be intact on most recent ultrasound on 01/04/17 Received betamethasone December 19December 20 Routine care with [facility] Follows regularly with M Nausea, vomiting, diarrhea: No fever noted at home or on vital signs in ED IV fluid bolus PO hydration Monitor on toco and FHR Zofran 4mg IV x 1 Will give prescription for Zofran to be used PRN Fragile X carrier: notable for delivery given genetic risk for Patient was seen and discussed with Dr. Cheng (Marita Burleson MD R1) Diagnosis Diagnosis: Primary Impression: Nausea and vomiting during Additional Impressions: History of delivery, currently in second trimester Short cervix with cervical cerclage in second trimester, antepartum Disposition: 01 DISCHARGE HOME Condition: Stable Scripts Ondansetron 4 Mg Tab4 Mg PO Q6HR PRN (NAUSEA) #30 TAB Prov:Marita Burleson MD R1 01/11/17 Patient Instructions: Labor (ED), Nausea and Vomiting in (ED) Collaborating MD Comments Agree with assessment. Patient seen and examined (Kathryn Cheng MD) Marita Burleson MD R1 Jan 11, 2017 10:23 Kathryn Cheng MD Jan 12, 2017 09:18 No Pitocin Patient was informed that if the strip is not reassuring, or if she develops symptoms suggesting severe preeclampsia, or other unforeseen difficulties, it may be necessary to proceed with a delivery Patient understands and agrees. All questions were answered. WDW [] Allergies-Medications (Allergen,Severity, Reaction): Coded Allergies: No Known Allergies (Unverified , 11/22/16) Home Meds Active Scripts W/O Vit A W/ Fe Fumar (Citranatal [place])27-1-260 Mg Cap1 Cap PO DAILY #30 CAP Ref 0 Prov:Ariel Oquendo MD 09/19/16 Reported Medications Famotidine (Pepcid)20 Mg Tab10 Mg PO BID #60 TAB Ref 0 01/11/17 Physical Exam Narrative GENERAL: Well-nourished, well-developed patient. SKIN: Warm and dry. HEAD: Normocephalic and atraumatic. EYES: No scleral icterus. No injection or drainage. ENT: No nasal drainage noted. Mucous membranes pink. Airway patent. NECK: Supple, trachea midline. No JVD. CARDIOVASCULAR: Regular rate and rhythm without murmurs, gallops, or rubs. RESPIRATORY: Breath sounds equal bilaterally. No accessory muscle use. BREASTS: Bilateral exam showed no masses , no retractions, no nipple discharge. ABDOMEN/GI: Abdomen soft, non-tender, bowel sounds present, no rebound, no guarding Gravid to [-] weeks size Fundal Height: [-] GENITOURINARY: External Genitalia: intact and normal in appearance BUS glands: [-] Cervix: [-] Dilatation: [-] Effacement: [-] Station: [-] Presentation: [-] Membranes: [intact or ruptured] Uterine Contractions: [-] FHT's: Category: [-] Baseline: [-] Reactive: [-] Variability: [-] Decels: [-] EXTREMITIES: No cyanosis or edema. BACK: Nontender without obvious deformity. No CVA tenderness. NEUROLOGICAL: Awake and alert. Motor and sensory grossly within normal limits. Five out of 5 muscle strength in all muscle groups. Normal speech. Data Data Orders Vital Signs (Adult) .ON ADMISSION (01/11/17 10:18) ^ Labor Status (01/11/17 10:18) ^ Hydration (01/11/17 10:18) Lactated Ringer's 1000 Ml Inj (Lr 1000 M (01/11/17 10:18) Marita Burleson MD R1 Jan 11, 2017 10:23
[2017-01-11] MEDS ORDERED: ONDANSETRON HCL 4 MG/2 ML VIAL IV PUSH ONE (10:45)
[2017-01-11] MEDS ORDERED: LACTATED RINGER'S 1000 ML INJ 1,000 ML IV SCH (11:00)
[2017-01-11] MEDS ORDERED: ONDA1TAB16 PO (11:35)
[2017-01-16] MEDS ORDERED: DIFL150T PO (09:59)
== END 2017-01-11 11:55 | disposition home or self-care (01) ==
LOC: HOBED 09:48
DX: O21.9 Vomiting of pregnancy, unspecified (principal); O26.873 Cervical shortening, third trimester; O26.893 Other specified pregnancy related conditions, third trimester; R19.7 Diarrhea, unspecified; Z87.51 Personal history of pre-term labor; Z98.890 Other specified postprocedural states; Z3A.28 28 weeks gestation of pregnancy
CPT/HCPCS: 96374; 99284; J2405; J7120

== ENCOUNTER 2017-01-29 11:41 | Emergency (ER) | payer MEDICAID ==
[~2017-01-29 11:41] MED LIST changes: +DIFL150T PO; +FAMO1TAB37 PO; +ONDA1TAB16 PO
[2017-01-29] MEDS ORDERED: CEPH-460 PO (13:38)
--- NOTE | 2017-01-29 13:38 | PD ---
HPI Chief Complaint Spotting vaginally Date Seen: Jan 29, 2017 Time Seen: 13:00 Travel History International Travel<30 Days: No Contact w/Intl Traveler<30Days: No Known Affected Area: No History of Present Illness HPI Patient is 27-year-old white female at [address] [facility]on [facility], she presents combining of spotting today of pinkish red when she wiped. She was seen in the office today but was not examined. She was not have any problem at that time she went home she lifted her toddler she felt some like to drainage and with the bathroom she wiped and saw pinkish red. has a cerclage in place for short cervix and history of labor. This was placed Dr. Sophy Burleson earlier in , she is not having pain at this time abdominally no leakage of fluid or nico blood per vagina, heart rate tracing is reactive and she is not gregg Para: 1 : 2 History Obstetric History Obstetric History 1 delivery at 32 weeks in the past vaginally His history of short cervix in this and a cervical cerclage placed in the second trimester by Dr. Travon Burleson Allergies-Medications (Allergen,Severity, Reaction): Coded Allergies: No Known Allergies (Unverified , 01/29/17) Home Meds Active Scripts Cephalexin (Keflex)500 Mg [id number] Mg PO Q8H #30 CAP Ref 0 Prov:Garrett Gaxiola II, MD 01/29/17 Fluconazole (Diflucan)150 Mg [id number] Mg PO ONCE #1 TAB Ref 0 Prov:Ariel Oquendo MD 01/16/17 Ondansetron 4 Mg Tab4 Mg PO Q6HR PRN (NAUSEA) #30 TAB Prov:Marita Burleson MD R1 01/11/17 W/O Vit A W/ Fe Fumar (Citranatal [place])27-1-260 Mg Cap1 Cap PO DAILY #30 CAP Ref 0 Prov:Ariel Oquendo MD 09/19/16 Reported Medications Famotidine (Pepcid)20 Mg Tab10 Mg PO BID #60 TAB Ref 0 01/11/17 Physical Exam Narrative GENERAL: Well-nourished, well-developed patient. SKIN: Warm and dry. HEAD: Normocephalic and atraumatic. EYES: No scleral icterus. No injection or drainage. ENT: No nasal drainage noted. Mucous membranes pink. Airway patent. NECK: Supple, trachea midline. No JVD. CARDIOVASCULAR: Regular rate and rhythm without murmurs, gallops, or rubs. RESPIRATORY: Breath sounds equal bilaterally. No accessory muscle use. BREASTS: Bilateral exam showed no masses , no retractions, no nipple discharge. ABDOMEN/GI: Abdomen soft, non-tender, bowel sounds present, no rebound, no guarding Gravid to [-32] weeks size Fundal Height: [-32] GENITOURINARY: External Genitalia: intact and normal in appearance Speculum and done and the fibronectin collected is pending at time of dictation no blood seen in the vagina cervix is posterior very large and friable is very soft, Prolene suture visible[ cerclage] just moving the speculum around a little bit touch the cervix and made it bleed. Cervix: [Cervix appears friable probably infected and inflamed foreign body present with the cerclage could be acting into increase the risk of infection of the cervix-] Dilatation: [-Fingertip] Effacement: [-] 50% Station: [-3] Presentation: [vtx-] Membranes: [intact ] Uterine Contractions: [none-] FHT's: Category: [1-] Baseline: [133-] Reactive: [-yes] Variability: [mod-] Decels: [none-] EXTREMITIES: No cyanosis or edema. BACK: Nontender without obvious deformity. No CVA tenderness. NEUROLOGICAL: Awake and alert. Motor and sensory grossly within normal limits. Five out of 5 muscle strength in all muscle groups. Normal speech. Data Data Orders Vital Signs (Adult) .ON ADMISSION (01/29/17 12:38) ^ Labor Status (01/29/17 12:38) Fibronectin (01/29/17 12:38) Labs fibronectin collected and pending see addendum for that result [ negative ] MDM Interpretation(s) 27-year-old white female at 31 weeks with history of short cervix and cerclage placement of now is spotting, well-developed pinkish reddish discharge noted when she wiped no nico blood per vagina, membranes intact, no contractions. Speculum exam done shows a friable cervix large soft with a foreign body cervical cerclage in place, and I believe this is the bleeding source is this friable cervix is very likely infected as well from having foreign body FFN neg today Plan Plan is oral Keflex 500mg 3 times a day for 10 days bedrest as much as possible with heavy lifting and straining., no intercourse. FFN negative., The patient's had a course of steroids IM for labor risk , and she should follow up with her OB provider Diagnosis Diagnosis: Primary Impression: Spotting affecting in third trimester Additional Impressions: Short cervix during in third trimester Cervicitis Disposition: 01 DISCHARGE HOME Condition: Stable Scripts Cephalexin (Keflex)500 Mg Ouo997 Mg PO Q8H #30 CAP Ref 0 Prov:Garrett Gaxiola II, MD 01/29/17 Garrett Gaxiola II, MD Jan 29, 2017 13:38
== END 2017-01-29 14:02 | disposition home or self-care (01) ==
LOC: HOBED 11:41
DX: O26.853 Spotting complicating pregnancy, third trimester (principal); O26.873 Cervical shortening, third trimester; O23.513 Infections of cervix in pregnancy, third trimester; Z3A.31 31 weeks gestation of pregnancy
CPT/HCPCS: 59025; 82731

== ENCOUNTER 2017-02-22 16:27 | Emergency (ER) | payer MEDICAID ==
[~2017-02-22] VITALS: Ht 170.2 cm; Wt 79.8 kg
[~2017-02-22 16:27] MED LIST changes: -DIFL150T PO
[2017-02-22 16:41] VITALS: BP 123/71; PULSE 71
--- NOTE | 2017-02-22 16:43 | PD ---
HPI Chief Complaint Presyncope Date Seen: Feb 22, 2017 Time Seen: 16:45 Travel History International Travel<30 Days: No Contact w/Intl Traveler<30Days: No Known Affected Area: No History of Present Illness HPI Patient is a 27-year-old at 34 weeks and 6 days who presents with presyncope upon standing. She reports feeling a little nausea this morning, she got up, took 3 steps, felt dizzy, lightheaded, presyncopal with associated tunnel vision. Her neighbor caught her. She then experienced some blurry vision , abdominal cramps, and headache. The blurry vision and cramping have resolved, but the headache has not. She denies any contractions, vaginal bleeding, leakage of fluid. She reports movement. 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 OBD - appt 11/13, 12/07, 01/04 Sono findings 11/13: funneling membranes- patient admitted - Cerclage placed NIPT - NEGATIVE GBS NEG Obstetric History Obstetric History 1 delivery at 32 weeks in the past vaginally Has history of short cervix in this and a cervical cerclage placed in the second trimester by Dr. Oquendo MFM consulted given patient's history of delivery. Cerclage recommended and placed at 20 weeks Betamethasone 2 on December 19Jun 1 Recent US reviewed: Cervical length on 01/04/2017 was 2124mm with funneling with cerclage intact. Past Surgical History Surgical History: No Previous Surgery Family History Family History: Negative Social History Alcohol Use: No Tobacco Use: No Substance Abuse: No Allergies-Medications (Allergen,Severity, Reaction): Coded Allergies: No Known Allergies (Unverified , 02/11/17) Home Meds Active Scripts Famotidine (Pepcid)20 Mg Tab10 Mg PO BID #60 TAB Ref 0 Prov:Ariel Oquendo MD 02/20/17 Ondansetron 4 Mg Tab4 Mg PO Q6HR PRN (NAUSEA) #30 TAB Prov:Marita Burleson MD R2 01/11/17 W/O Vit A W/ Fe Fumar (Citranatal [place])27-1-260 Mg Cap1 Cap PO DAILY #30 CAP Ref 0 Prov:Ariel Oquendo MD 09/19/16 Discontinued Reported Medications Famotidine (Pepcid)20 Mg Tab10 Mg PO BID #60 TAB Ref 0 01/11/17 Review of Systems General / Constitutional: No: Fever, Weight Gain, Chills, Other Eyes: Blurred Vision, No: Diploplia, Visual changes, Pain, Photophobia HENT: Headaches, Lightheadedness Cardiovascular: No: Irregular Rhythm, Chest Pain or Discomfort, Palpitations, Tachycardia, Syncope, Varicosities, Edema, Cyanosis Respiratory: No: Cough, Short of Breath, Other Gastrointestinal: Nausea, No: Vomiting, Diarrhea, Abdominal Pain Genitourinary: No: Dysuria, Decreased Urinary Output, Oliguria Musculoskeletal: No: Limited ROM, Weakness, Cramping, Edema, Pain Physical Exam 123/71, pulse 71 Narrative GENERAL: Well-nourished, well-developed patient. SKIN: Warm and dry. HEAD: Normocephalic and atraumatic. EYES: No scleral icterus. No injection or drainage. ENT: No nasal drainage noted. Mucous membranes pink. Airway patent. NECK: Supple, trachea midline. No JVD. CARDIOVASCULAR: Regular rate and rhythm without murmurs, gallops, or rubs. RESPIRATORY: Breath sounds equal bilaterally. No accessory muscle use. ABDOMEN/GI: Abdomen soft, non-tender, bowel sounds present, no rebound, no guarding Gravid to 35 weeks size GENITOURINARY: Uterine Contractions: none on monitor FHT's: Category: Cat I Baseline: 140 Reactive: reactive Variability: none Decels: none EXTREMITIES: No cyanosis or edema. BACK: Nontender without obvious deformity. No CVA tenderness. NEUROLOGICAL: Awake and alert. Motor and sensory grossly within normal limits. Five out of 5 muscle strength in all muscle groups. Normal speech. Data Data Vital Signs Reviewed: Yes MDM Plan Patient is a 27-year-old at 34 weeks and 6 days who presents with presyncope upon standing. 1. presyncope likely in the context of dehydration LR IV bolus Monitor vital signs Monitor labor status Monitor heart tones Encourage by mouth hydration CBC, CMP, UA 2. headache Tylenol Discussed with Dr. Morales Diagnosis Diagnosis: Primary Impression: Pre-syncope Additional Impression: Postural dizziness with presyncope Disposition: 01 DISCHARGE HOME Condition: Good Marquez,Ross MD R2 Feb 22, 2017 16:43
[2017-02-22 16:45] VITALS: RESP 18; TEMP 97.8
[2017-02-22] MEDS ORDERED: LACTATED RINGER'S 1000 ML INJ 500 ML IV ONE (16:56)
[2017-02-22 17:08] VITALS: BP 125/62; PULSE 67
[2017-02-22] MEDS ORDERED: ACETAMINOPHEN 325 MG TAB PO ONE (17:30)
[2017-02-22 17:33] LABS: HEMATOCRIT 30.8 % (35.0-46.0); MEAN CELL VOLUME 86.6 FL (80.0-100.0); MEAN CORPUSCULAR HEMOGLOBIN 29.7 PG (27.0-34.0); MEAN CORPUSCULAR HGB CONC 34.3 % (32.0-36.0); PLATELET COUNT 200 TH/MM3 (150-450); RED BLOOD COUNT 3.56 MIL/MM3 (4.00-5.30); RED CELL DISTRIBUTION WIDTH 14.3 % (11.6-17.2); REVIEW FLAG FINAL; WHITE BLOOD COUNT 9.4 TH/MM3 (4.0-11.0)
[2017-02-22 17:54] LABS: ALT (GPT) 19 U/L (10-53); ANION GAP 9 MEQ/L (5-15); AST (GOT) 10 U/L (15-37); BICARBONATE 24.5 MEQ/L (21.0-32.0); BLOOD UREA NITROGEN 7 MG/DL (7-18); CHLORIDE 107 MEQ/L (98-107); GLOMERULAR FILTRATION RATE 174 ML/MIN (>89); POTASSIUM 4.2 MEQ/L (3.5-5.1); SODIUM (NA) 140 MEQ/L (136-145)
[2017-02-22 17:56] LABS: ALKALINE PHOSPHATASE 93 U/L (45-117); TOTAL BILIRUBIN ADULT 0.2 MG/DL (0.2-1.0)
[2017-02-22 18:05] LABS: BACTERIA, URINE MANY /hpf; BLOOD, URINE NEG (NEG); COMMENT (UR) CULTURE INDICATED; CULTURE IF INDICATED CULTURE INDICATED; GLUCOSE,URINE NEG (NEG); KETONE, URINE NEG (NEG); NITRITE,URINE NEG (NEG); PH, URINE 7.5 (5.0-8.5); SQUAMOUS EPITHELIAL CELL URINE 17 /hpf (0-5); URINE COLOR YELLOW (YELLW/STRAW)
== END 2017-02-22 18:41 | disposition home or self-care (01) ==
LOC: HOBED 16:27
DX: O26.893 Other specified pregnancy related conditions, third trimester (principal); R55 Syncope and collapse; R42 Dizziness and giddiness; Z3A.34 34 weeks gestation of pregnancy
CPT/HCPCS: 80053; 81001; 85027; 87086; 99284; J7120

== ENCOUNTER 2017-03-08 12:14 | Inpatient (IN) | payer MEDICAID ==
[2017-03-08] VITALS (24 sets, daily range): BP systolic 114–151; BP diastolic 56–91; PULSE 60–79; RESP 16–18; TEMP 97.6–98.1
[2017-03-08] MEDS ORDERED: LACTATED RINGER'S 1000 ML INJ 1,000 ML IV PRN (14:29)
[2017-03-08] MEDS ORDERED: MINERAL OIL 10 ML VIAL TOPICAL PRN (14:30)
[2017-03-08] MEDS ORDERED: CITRIC ACID-SODIUM CITRATE LIQ 30 ML UDC PO SCH (14:30)
[2017-03-08] MEDS ORDERED: LIDOCAINE HCL 1% 50 ML VIAL I-DERMAL PRN (14:30)
[2017-03-08] MEDS ORDERED: OXYTOCIN 30 UNITS-500ML PREMIX 500 ML IV ONE (14:30)
[2017-03-08] MEDS ORDERED: LIDOCAINE HCL 1% 50 ML VIAL INFIL PRN (14:30)
[2017-03-08] MEDS ORDERED: SODIUM CHLORID 0.9% 500 ML INJ 500 ML IV PRN (14:30)
[2017-03-08] MEDS ORDERED: SODIUM CHLOR 0.9% 1000 ML INJ 1,000 ML IV PRN (14:49)
--- NOTE | 2017-03-08 14:53 | HHI.HP ---
HPI Chief Complaint [facility] due to advanced cervical dilation and history of cervical incompetence Date Seen: Mar 08, 2017 Travel History International Travel<30 Days: No Contact w/Intl Traveler<30Days: No Known Affected Area: No History of Present Illness HPI Patient is 27-year-old white female A1 now at 36 weeks and 6 days who was [facility] after noting cervical dilation ongoing today in the clinic. She had a cervical os cerclage placed at 20 weeks due to history of delivery at 32 weeks and a previous miscarriage prior to that. The cerclage was cut out this morning and soon after that was noted patient is a 3-4 cm dilated. The clinic at her go walk and or leave the clinic and then return for recheck and when she. She was 5-6 cm SLA sent over here expecting her to deliver to be delivered due to advanced cervical dilation in a multiparous patient with a history of cervical incompetence patient's having some contractions and some abdominal pain on and off with a virus 24 hours. No leakage of fluid or bleeding. Heart rate tracing is reactive no regular contractions seen. Para: 2 : 3 Last Menstrual Period: Mar 08, 2017 History Obstetric History Obstetric History Patient had a delivery at 32 weeks with last . In this she had a cervical shortening and funneling at [address] Echeverria put in Cervical cerclage at 20 weeks, the cerclage was cut out this morning Past Surgical History Narrative Surgical Cervical cerclage at 20 weeks Social History Alcohol Use: No Tobacco Use: No Substance Abuse: No Allergies-Medications (Allergen,Severity, Reaction): Coded Allergies: No Known Allergies (Unverified , 03/08/17) Home Meds Active Scripts Famotidine (Pepcid)20 Mg Tab10 Mg PO BID #60 TAB Ref 0 Prov:Ariel Oquendo MD 02/20/17 Ondansetron 4 Mg Tab4 Mg PO Q6HR PRN (NAUSEA) #30 TAB Prov:Marita Burleson MD R2 01/11/17 W/O Vit A W/ Fe Fumar (Citranatal Uledi)27-1-260 Mg Cap1 Cap PO DAILY #30 CAP Ref 0 Prov:Ariel Oquendo MD 09/19/16 Review of Systems General / Constitutional: No: Fever, Weight Gain, Chills, Other Eyes: No: Diploplia, Blurred Vision, Visual changes, Pain, Photophobia HENT: No: Headaches, Vertigo, Lightheadedness Cardiovascular: No: Irregular Rhythm, Chest Pain or Discomfort, Palpitations, Tachycardia, Syncope, Varicosities, Edema, Cyanosis Respiratory: No: Cough, Short of Breath, Other Gastrointestinal: Abdominal Pain, No: Nausea, Vomiting, Diarrhea Genitourinary: No: Decreased Urinary Output, Oliguria Musculoskeletal: No: Limited ROM, Weakness, Cramping, Edema, Pain Skin: No Rash, No Itching, No Dryness, No Lumps, No Change in Pigmentation, No Change in Nails, No Alopecia, No Lesions Neurologic: No: Weakness, Dizziness, Syncope, Focal Abnormalities, Coordination Problem, Headache, Slurred Speech, Seizures Psychiatric: No: Depression, Suicidal Ideations, Homicidal Ideation Endocrine: No: Heat Intolerance, Cold Intolerance, Polydipsia, Polyuria, Other Physical Exam Narrative GENERAL: Well-nourished, well-developed patient. SKIN: Warm and dry. HEAD: Normocephalic and atraumatic. EYES: No scleral icterus. No injection or drainage. ENT: No nasal drainage noted. Mucous membranes pink. Airway patent. NECK: Supple, trachea midline. No JVD. CARDIOVASCULAR: Regular rate and rhythm without murmurs, gallops, or rubs. RESPIRATORY: Breath sounds equal bilaterally. No accessory muscle use. BREASTS: Bilateral exam showed no masses , no retractions, no nipple discharge. ABDOMEN/GI: Abdomen soft, non-tender, bowel sounds present, no rebound, no guarding Gravid to [36-] weeks size Fundal Height: [36-] GENITOURINARY: External Genitalia: intact and normal in appearance BUS glands: [-] Cervix: [-] Dilatation: [-5-6] Effacement: [-70] Station: [-1] Presentation: [vtx-] Membranes: [intact Uterine Contractions: [none-] FHT's: Category: [1-] Baseline: [-133] Reactive: [-yes] Variability: [mod-] Decels: [none-] EXTREMITIES: No cyanosis or edema. BACK: Nontender without obvious deformity. No CVA tenderness. NEUROLOGICAL: Awake and alert. Motor and sensory grossly within normal limits. Five out of 5 muscle strength in all muscle groups. Normal speech. Data Data Orders Admit To Inpatient (03/08/17 ) Vital Signs (Adult) .Per protocol (03/08/17 14:29) Heart (03/08/17 14:29) Amnioinfusion (03/08/17 14:29) Urinary Catheter Management .ONCE (03/08/17 14:29) Lactated Ringer's 1000 Ml Inj (Lr 1000 M (03/08/17 14:29) Lactated Ringer's 1000 Ml Inj (Lr 1000 M (03/08/17 14:29) Sodium Chlorid 0.9% 500 Ml Inj (Ns 500 M (03/08/17 14:30) Sodium Chlor 0.9% 1000 Ml Inj (Ns 1000 M (03/08/17 14:49) Lidocaine 1% Inj (50 Ml) (Xylocaine 1% I (03/08/17 14:30) Citric Acid-Sodium Citrate Liq (Bicitra (03/08/17 14:30) Fentanyl Inj (Fentanyl Inj) (03/08/17 14:30) Fentanyl Inj (Fentanyl Inj) (03/08/17 14:30) Complete Blood Count With Diff (03/08/17 14:29) Hold Clot (03/08/17 14:29) Abo/Rh Blood Type (03/08/17 14:29) Urinalysis - C+S If Indicated (03/08/17 14:29) Resp Oxygen Non Rebreathe Mask (03/08/17 ) ^ Epidural / Intrathecal Infus (03/08/17 14:29) Oxytocin 30 Units-500ml Premix (Pitocin (03/08/17 14:30) Lidocaine 1% Inj (50 Ml) (Xylocaine 1% I (03/08/17 14:30) Light Mineral Oil (Muri-Lube Oil) (03/08/17 14:30) Specimen To Be Collected PRN (03/08/17 14:29) Diet Regular Basic (03/08/17 Dinner) Npo After Midnight W/ Po Meds (03/08/17 Dinner) Assessment/Plan Assessment and Plan Patient is a 27-year-old white female A1 at 36 weeks and 6 days [facility] due to advanced cervical dilation in the noted today on 2 different office visits. She was seen early this morning and her cervical cerclage was cut out and sent she was noted to be 3-4 cm dilated. She left the office and returned later recheck and she was 5-6 cm. At that time they felt she needed to come here for very likely first delivery sooner to be delivered. Without the patient was 5-6 cm 70% effaced and -1 station vertex with a bulging bag and that she is having advanced cervical dilation after cutting out her cerclage and a multiparous patient in the would be indicated to hospitalize and facilitate delivery tomorrow when she's 37 weeks or sooner if she spontaneously ruptures her goes into labor Garrett Gaxiola II, MD Mar 08, 2017 14:53
[2017-03-08 14:54] LABS: BACTERIA, URINE OCC /hpf; BLOOD, URINE NEG (NEG); COMMENT (UR) CULT NOT INDICATED; CULTURE IF INDICATED CULT NOT INDICATED; GLUCOSE,URINE NEG (NEG); KETONE, URINE NEG (NEG); NITRITE,URINE NEG (NEG); SQUAMOUS EPITHELIAL CELL URINE 1 /hpf (0-5); URINE COLOR LIGHT-YELLOW (YELLW/STRAW)
[2017-03-08 16:18] LABS: AUTOMATED NEUTROPHIL # 7.3 TH/MM3 (1.8-7.7); BASOPHIL % 0.4 % (0.0-2.0); EOSINOPHIL # 0.1 TH/MM3 (0-0.4); HEMATOCRIT 33.7 % (35.0-46.0); HEMO FLAGS DIFF FINAL; LYMPH % 23.5 % (9.0-44.0); LYMPHOCYTE # 2.5 TH/MM3 (1.0-4.8); MEAN CELL VOLUME 86.3 FL (80.0-100.0); MEAN CORPUSCULAR HEMOGLOBIN 29.5 PG (27.0-34.0); MEAN CORPUSCULAR HGB CONC 34.2 % (32.0-36.0); MONO % 6.8 % (0.0-8.0); NEUT % 68.3 % (16.0-70.0); PLATELET COUNT 208 TH/MM3 (150-450); RED BLOOD COUNT 3.91 MIL/MM3 (4.00-5.30); RED CELL DISTRIBUTION WIDTH 13.9 % (11.6-17.2); WHITE BLOOD COUNT 10.6 TH/MM3 (4.0-11.0)
[2017-03-08] MEDS ORDERED: SODIUM CHLORIDE FLUSH PRN IV FLUSH (17:15)
[2017-03-08] MEDS: FAMOTIDINE 20 MG TAB PO SCH ×2 (17:29→21:00)
[2017-03-08] MEDS: SODIUM CHLORIDE FLUSH BID IV FLUSH SCH (21:00)
[2017-03-08] MEDS ORDERED: fentaNYL 2MCG-BUPIV 0.125% INJ 100 ML ONE (21:35)
[2017-03-08] MEDS ORDERED: ePHEDrine/NS 25 MG/5 ML SYR ONE (21:35)
[2017-03-08] MEDS: LACTATED RINGER'S 1000 ML INJ 1,000 ML IV SCH ×2 (22:42→23:40)
[2017-03-08] MEDS ORDERED: ePHEDrine/NS 25 MG/5 ML SYR IV PRN (23:00)
[2017-03-08] MEDS ORDERED: DO NOT ADMINISTER ANTICOAGULANTS PRN (23:00)
[2017-03-08] MEDS ORDERED: NO SYSTEM NARCOTICS PRN (23:00)
[2017-03-08] MEDS: fentaNYL 2MCG-BUPIV 0.125% 100 ML EPIDURAL SCH (23:40)
[2017-03-09] VITALS (43 sets, daily range): BP systolic 98–137; BP diastolic 46–87; PULSE 54–89; RESP 16–18; TEMP 97.9–98.8
[2017-03-09] MEDS: fentaNYL 2MCG-BUPIV 0.125% 100 ML EPIDURAL SCH (06:31)
[2017-03-09] MEDS: LACTATED RINGER'S 1000 ML INJ 1,000 ML IV SCH (06:32)
--- NOTE | 2017-03-09 08:10 | PD.LABORPN ---
Subjective Subjective OB note AROM clear with blood tinge , FHR reactive CTXs q4-5 min cx 6-7 /80/-1/ vtx will monitor for change and augment prn Objective Vital Signs Vital Signs Date Time Temp Pulse Resp B/P Pulse Ox O2 Delivery O2 Flow Rate FiO2 03/09/17 08:00 63 134/76 03/09/17 07:30 63 121/71 03/09/17 07:00 60 105/57 03/09/17 06:31 16 03/09/17 06:30 57 111/65 03/09/17 06:00 67 108/46 03/09/17 05:30 57 98/46 03/09/17 05:00 67 105/54 03/09/17 04:55 98.1 18 03/09/17 04:30 71 105/48 03/09/17 04:00 56 108/54 03/09/17 03:30 70 111/73 03/09/17 03:19 16 03/09/17 03:19 98.0 03/09/17 03:00 59 105/63 03/09/17 02:31 59 112/56 03/09/17 02:00 55 114/58 03/09/17 01:30 57 112/68 03/09/17 01:22 98.3 03/09/17 01:10 18 03/09/17 01:00 57 103/51 03/09/17 00:34 16 03/09/17 00:30 54 106/53 Objective Pelvic Exam: Cervix: [-] Dilatation: [-6-7] Effacement: [-80] Station: [-1] Presentation: [vtx-] Membranes: ruptured] Uterine Contractions: [-q 5 min] FHT's: Category: [-1] Baseline: [-133] Reactive: [-yes] Variability: [ mod-] Decels: [none-] Garrett Gaxiola II, MD Mar 09, 2017 08:10
[2017-03-09] MEDS: SODIUM CHLORIDE FLUSH BID IV FLUSH SCH (08:52)
[2017-03-09] MEDS: FAMOTIDINE 20 MG TAB PO SCH ×2 (09:00→21:00)
[2017-03-09] MEDS ORDERED: OXYTOCIN 30 UNITS-500ML PREMIX 500 ML IV SCH ×2 (09:30→12:15)
--- NOTE | 2017-03-09 10:16 | PD.LABORPN ---
Subjective Subjective Patient states she is feeling pelvic pressure but is otherwise comfortable with epidural. She is status-post IUPC placement this morning and Pitocin was started at low dose. Objective Vital Signs Vital Signs Date Time Temp Pulse Resp B/P Pulse Ox O2 Delivery O2 Flow Rate FiO2 03/09/17 09:30 59 123/75 03/09/17 09:00 98.2 18 03/09/17 09:00 57 131/67 03/09/17 08:30 60 120/68 03/09/17 08:00 63 134/76 03/09/17 07:30 63 121/71 03/09/17 07:00 60 105/57 03/09/17 06:31 16 03/09/17 06:30 57 111/65 03/09/17 06:00 67 108/46 03/09/17 05:30 57 98/46 03/09/17 05:00 67 105/54 03/09/17 04:55 98.1 18 03/09/17 04:30 71 105/48 03/09/17 04:00 56 108/54 03/09/17 03:30 70 111/73 03/09/17 03:19 16 03/09/17 03:19 98.0 03/09/17 03:00 59 105/63 03/09/17 02:31 59 112/56 Objective Pelvic Exam: Cervix: 7/80/0 Presentation: vertex Membranes: AROM @ 0804 Uterine Contractions: Q2MIN FHT's: Category: 1 Baseline: 130s Reactive: 150s Variability: mod Decels: absent Assessment/Plan Problem List: (1) Cervical insufficiency during , antepartum (2) History of delivery Assessment and Plan 27-year-old A1 at 37 and 0/7 weeks with a history of labor who presents in labor. She is a history of delivery with cerclage placement , removed yesterday. She is a fragile X carrier. Intrauterine : Category 1 tracing Vaginal delivery expected AROM 0804, clear Does not 08/23/29 Continue monitoring with IUPC Epidural for pain, currently employed CBC essentially unremarkable. H/H 11.5/33.7. U/A unremarkable IV fluids Monitor heart tones Routine care GBS negative Fragile X Carrier SDW Marita Liz MD R2 Mar 09, 2017 10:16
--- NOTE | 2017-03-09 12:08 | PD.OB.DELI ---
Delivery Date: Mar 09, 2017 Anesthesia: Epidural Episiotomy: None Vaginal Delivery: Normal, Spontaneous Presentation: Occiput anterior Nuchal Cord: x1 Delayed cord clamping (45 sec): Yes : Male, Single One Minute : 8 Five Minute : 9 Weight: 3025g Placenta: Spontaneous delivery, 3 vessel cord Laceration: Vaginal laceration, 1 deg Repair: Vicryl running Estimated blood loss: 150cc Additional Information Dr Marita Burleson PGY2, was present at delivery and delivered placenta. There was a right periurethral labial 1st laceration repaired with single interrupted 3.0 Vicryl knot. There was also a left sided vaginal 1st degree laceration extending to mediolateral aspect also repaired in standard fashion with 3.0 Vicryl Jack Mays MD Mar 09, 2017 12:08
[2017-03-09] MEDS ORDERED: ONDANSETRON ODT 4 MG TAB PO PRN (12:15)
[2017-03-09] MEDS ORDERED: ZOLPIDEM TARTRATE 5 MG TAB PO PRN (12:15)
[2017-03-09] MEDS ORDERED: SODIUM CHLORIDE 0.9% FLUSH 10 ML FLUSH IV FLUSH PRN (12:15)
[2017-03-09] MEDS ORDERED: ALUMINUM/MAGNESIUM/SIMETH 30 ML CUP PO PRN (12:15)
[2017-03-09] MEDS ORDERED: ACETAMINOPHEN 325 MG TAB PO PRN (12:15)
[2017-03-09] MEDS: oxyCODONE/ACETAMINOPHEN 5 MG/325 MG TAB PO PRN ×3 (12:45→19:07)
[2017-03-09] MEDS: WITCH HAZEL 50%/GLYCERIN 12.5% 40 PAD JAR TOPICAL PRN (12:45)
[2017-03-09] MEDS: IBUPROFEN 600 MG TAB PO PRN ×2 (12:45→19:07)
[2017-03-09] MEDS: BENZOCAINE 20% TOPICAL SPRAY 60 ML CAN TOPICAL PRN (12:46)
[2017-03-09] MEDS ORDERED: DIPHTH/TETANUS/ACEL PERTUSSIS (BOOSTER) 0.5 ML VIAL/PFS IM ONE (16:00)
[2017-03-09] MEDS ORDERED: MEASLES, MUMPS, RUBELLA VACCINE 0.5 ML VIAL SQ ONE (16:00)
[2017-03-09] MEDS: DOCUSATE SODIUM 50 MG/SENNA 8.6 MG TAB PO PRN (19:07)
[2017-03-09] MEDS: SODIUM CHLORIDE 0.9% FLUSH 10 ML FLUSH IV FLUSH SCH (21:00)
[2017-03-10] MEDS: oxyCODONE/ACETAMINOPHEN 5 MG/325 MG TAB PO PRN ×3 (00:03→21:37)
--- NOTE | 2017-03-10 07:16 | HHI.OB ---
Subjective Post Day: 1 Remarks day # 1. AFVSS overnight. Decreased lochia. Denies dysuria. No breast tenderness. She is feeding the baby via breast. Appetite good. No nausea or vomiting. Ambulating well. Denies calf pain or shortness of breath. Otherwise, she is doing well this morning and has no other concerns. Objective Vitals/I&O Vital Signs Date Time Temp Pulse Resp B/P Pulse Ox O2 Delivery O2 Flow Rate FiO2 03/09/17 21:00 98.3 60 18 03/09/17 21:00 114/72 03/09/17 14:34 66 18 120/74 03/09/17 14:34 98.8 03/09/17 13:15 98.6 03/09/17 12:45 58 127/83 03/09/17 12:40 16 03/09/17 12:31 59 137/83 03/09/17 12:30 16 03/09/17 12:15 64 133/78 03/09/17 12:12 18 03/09/17 12:00 80 124/69 03/09/17 11:51 83 131/72 03/09/17 11:31 89 126/64 03/09/17 11:01 76 132/80 03/09/17 11:00 97.9 03/09/17 10:30 68 120/61 03/09/17 10:00 64 126/87 03/09/17 09:30 59 123/75 03/09/17 09:00 98.2 18 03/09/17 09:00 57 131/67 03/09/17 08:30 60 120/68 03/09/17 08:00 63 134/76 03/09/17 07:30 63 121/71 Objective Remarks GENERAL: Well-nourished, well-developed female in no apparent distress. CARDIOVASCULAR: Regular rate and rhythm without murmurs, gallops, or rubs. RESPIRATORY: Breath sounds equal bilaterally. No accessory muscle use. ABDOMEN/GI: Abdomen soft, non-tender. Fundus: Firm, non-tender at umbilicus. GENITOURINARY: Moderate bleeding. EXTREMITIES: No cyanosis or edema, non-tender, without signs of DVT. Medications and IVs Current Medications Medications (Trade) Dose Ordered Sig/Lissette Route Start Time Stop Time Status Last Admin (Pepcid) 20 mg BID PO 03/08/17 17:00 03/08/17 17:29 (NS Flush) 2 ml BID IV FLUSH 03/08/17 21:00 Sodium Chloride 2 ml 2 ml UNSCH PRN IV FLUSH 03/08/17 17:15 Fentanyl/ Bupivacaine HCl 100 ml @ 0 mls/hr TITRATE EPIDURAL 03/08/17 23:00 03/09/17 06:31 (Pitocin 30 Units-NS 500 ml Premix) 500 ml @ 0 mls/hr TITRATE IV 03/09/17 09:30 03/09/17 09:36 (NS Flush) 2 ml BID IV FLUSH 03/09/17 21:00 (NS Flush) 2 ml UNSCH PRN IV FLUSH 03/09/17 12:15 (Tylenol) 650 mg Q4H PRN PO 03/09/17 12:15 (Motrin) 600 mg Q6H PRN PO 03/09/17 12:15 03/09/17 19:07 (Percocet 5-325 Mg) 1 tab Q4H PRN PO 03/09/17 12:15 03/09/17 14:15 (Percocet 5-325 Mg) 2 tab Q4H PRN PO 03/09/17 12:15 03/10/17 00:03 (Americaine 20% Top Spr) 1 spray Q4H PRN TOPICAL 03/09/17 12:15 03/09/17 12:46 (Tucks Pads) 1 applic QID PRN TOPICAL 03/09/17 12:15 03/09/17 12:45 (Tiffanie-Colace) 2 tab Q12H PRN PO 03/09/17 12:15 03/09/17 19:07 (Ambien) 5 mg HS PRN PO 03/09/17 12:15 (Mag-Al Plus Susp Liq) 15 ml Q8H PRN PO 03/09/17 12:15 (Zofran Odt) 4 mg Q6H PRN PO 03/09/17 12:15 Assessment/Plan Problem List: (1) Cervical insufficiency during , antepartum (2) History of delivery Assessment and Plan 27 y/o female who is PPD#1 . complicated by cerclage placement due to history PTL. Post- Care: -Continue routine care. -Percocet and Motrin PRN pain. -Encouraged OOB. Advised pelvic rest for 6 wks. -Re: ctrl, she desires Mirena and plans to talk to her OB about it (hx heavy periods) -Anticipate discharge tomorrow Marita Cleveland Dr., MD R2 Mar 10, 2017 07:16
[2017-03-10 08:00] VITALS: BP 120/75; PULSE 68; RESP 18; TEMP 98
[2017-03-10] MEDS: BENZOCAINE 20% TOPICAL SPRAY 60 ML CAN TOPICAL PRN (15:28)
[2017-03-10] MEDS: WITCH HAZEL 50%/GLYCERIN 12.5% 40 PAD JAR TOPICAL PRN (15:28)
[2017-03-10] MEDS: IBUPROFEN 600 MG TAB PO PRN ×2 (15:28→21:37)
[2017-03-10 21:35] VITALS: BP 121/71; PULSE 56; RESP 16; TEMP 97.9
[2017-03-10] MEDS: DOCUSATE SODIUM 50 MG/SENNA 8.6 MG TAB PO PRN (21:36)
[2017-03-11] MEDS: IBUPROFEN 600 MG TAB PO PRN ×2 (05:22→11:25)
[2017-03-11] MEDS: oxyCODONE/ACETAMINOPHEN 5 MG/325 MG TAB PO PRN ×4 (05:22→16:25)
--- NOTE | 2017-03-11 07:58 | HHI.OB ---
Subjective Post Day: 2 Remarks day # 2 AFVSS overnight. Decreased lochia. Denies dysuria. No breast tenderness. She is feeding the baby via breast. Appetite good. No nausea or vomiting. Ambulating well. Denies calf pain or shortness of breath. Otherwise, she is doing well this morning and has no other complaints. (Grayson Mccall MD R1) Objective Objective Remarks GENERAL: Well-nourished, well-developed female in no apparent distress. CARDIOVASCULAR: Regular rate and rhythm without murmurs, gallops, or rubs. RESPIRATORY: Breath sounds equal bilaterally. No accessory muscle use. ABDOMEN/GI: Abdomen soft, non-tender. Fundus: Firm, non-tender at umbilicus. GENITOURINARY: Moderate bleeding. EXTREMITIES: No cyanosis or edema, non-tender, without signs of DVT. Medications and IVs Current Medications Medications (Trade) Dose Ordered Sig/Lissette Route Start Time Stop Time Status Last Admin (Pepcid) 20 mg BID PO 03/08/17 17:00 03/08/17 17:29 (NS Flush) 2 ml BID IV FLUSH 03/08/17 21:00 (NS Flush) 2 ml UNSCH PRN IV FLUSH 03/08/17 17:15 Fentanyl/ Bupivacaine HCl 100 ml @ 0 mls/hr TITRATE EPIDURAL 03/08/17 23:00 03/09/17 06:31 Oxytocin 500 ml @ 0 mls/hr TITRATE IV 03/09/17 09:30 03/09/17 09:36 (NS Flush) 2 ml BID IV FLUSH 03/09/17 21:00 (NS Flush) 2 ml UNSCH PRN IV FLUSH 03/09/17 12:15 (Tylenol) 650 mg Q4H PRN PO 03/09/17 12:15 (Motrin) 600 mg Q6H PRN PO 03/09/17 12:15 03/11/17 05:22 (Percocet 5-325 Mg) 1 tab Q4H PRN PO 03/09/17 12:15 03/09/17 14:15 (Percocet 5-325 Mg) 2 tab Q4H PRN PO 03/09/17 12:15 03/11/17 05:22 (Americaine 20% Top Spr) 1 spray Q4H PRN TOPICAL 03/09/17 12:15 03/10/17 15:28 (Tucks Pads) 1 applic QID PRN TOPICAL 03/09/17 12:15 03/10/17 15:28 (Tiffanie-Colace) 2 tab Q12H PRN PO 03/09/17 12:15 03/10/17 21:36 (Ambien) 5 mg HS PRN PO 03/09/17 12:15 (Mag-Al Plus Susp Liq) 15 ml Q8H PRN PO 03/09/17 12:15 (Zofran Odt) 4 mg Q6H PRN PO 03/09/17 12:15 (Grayson Mccall MD R1) Assessment/Plan Problem List: (1) Cervical insufficiency during , antepartum ICD Codes: O34.40 - Maternal care for other abnormalities of cervix, unspecified trimester Status: Acute (2) History of delivery ICD Codes: Z87.51 - Personal history of pre-term labor Status: Acute Assessment and Plan 27 y/o female who is PPD#1 . complicated by cerclage placement due to history PTL. Post- Care: -Continue routine care. -Motrin PRN pain. -Encouraged OOB. Advised pelvic rest for 6 wks. -Re: ctrl, she desires Mirena and plans to talk to her OB about it (hx heavy periods) -Anticipate discharge today DW Dr. Ugarte, Dr. Lobo (Grayson Mccall MD R1) Addendum Remarks I rounded on the patient. I rounded with the resident. I reviewed the resident' s assessment and plan of care for this patient. I am in agreement with the plan of care for this patient. (Adelita Barboza MD) Grayson Mccall MD R1 Mar 11, 2017 07:58 Adelita Barboza MD Mar 11, 2017 08:36
[2017-03-11] MEDS ORDERED: PERI8.6T PO (08:00)
[2017-03-11] MEDS ORDERED: IBUP-232 PO (08:00)
--- NOTE | 2017-03-11 08:01 | HHI.DCPOC ---
Discharge Care Plan Report Symptoms to Your Doctor -Temperature above 100.5 degrees -Redness, of incision or excessive or foul smelling drainage -Unusual pain or calf pain -Increased vaginal bleeding -Painful or difficulty urinating -Feelings of extreme sadness or anxiety after 2 weeks Goals to Promote Your Health * To prevent worsening of your condition and complications * To maintain your health at the optimal level Directions to Meet Your Goals Take your medications as prescribed Follow your dietary instruction Follow activity as directed Ensure plenty of rest for recovery Drink fluids for hydration Keep your appointments as scheduled Take your immunizations and boosters as scheduled If your symptoms worsen call your PCP, if no PCP go to Urgent Care Center or Emergency Room Smoking is Dangerous to Your Health. Avoid second hand smoke Call the 24-hour crisis hotline for domestic abuse at Grayson Mccall MD R1 Mar 11, 2017 08:01
[2017-03-11 08:30] VITALS: BP 129/80; PULSE 98; RESP 18; TEMP 97.8
[2017-03-11] MEDS: FAMOTIDINE 20 MG TAB PO SCH (08:30)
[2017-03-11] MEDS: SODIUM CHLORIDE FLUSH BID IV FLUSH SCH (09:00)
[2017-03-11] MEDS: SODIUM CHLORIDE 0.9% FLUSH 10 ML FLUSH IV FLUSH SCH (09:00)
[2017-03-11] MEDS: DOCUSATE SODIUM 50 MG/SENNA 8.6 MG TAB PO PRN (10:41)
[2017-04-18] MEDS ORDERED: LEVO1IUD4 (09:56)
== END 2017-03-11 17:02 | disposition home or self-care (01) | DRG 775 ==
LOC: H2EB 12:14 → H1EA 03-09 13:40
PROVIDERS: ADMIT Obstetrics & Gynecology Maternal & Fetal Medicine; ATTEND Obstetrics & Gynecology Maternal & Fetal Medicine
PROC: 10E0XZZ Delivery of Products of Conception, External Approach (ICD-10-PCS; principal; 2017-03-09)
PROC: 10907ZC Drainage of Amniotic Fluid, Therapeutic from Products of Conception, Via Natural or Artificial Opening (ICD-10-PCS; 2017-03-09)
PROC: 10H07YZ Insertion of Other Device into Products of Conception, Via Natural or Artificial Opening (ICD-10-PCS; 2017-03-09)
PROC: 0HQ9XZZ Repair Perineum Skin, External Approach (ICD-10-PCS; 2017-03-09)
DX: O34.33 Maternal care for cervical incompetence, third trimester (principal); O69.81X0 Labor and delivery complicated by cord around neck, without compression, not applicable or unspecified; Z37.0 Single live birth; Z3A.36 36 weeks gestation of pregnancy; O70.0 First degree perineal laceration during delivery
CPT/HCPCS: 59025; 81001; 85025; 86900; 86901; 90707; 90715; J2590; J7120

== ENCOUNTER 2017-06-02 21:12 | Emergency (ER) | payer MEDICAID, OTHER ==
[~2017-06-02] VITALS: Ht 170.2 cm; Wt 71.9 kg
[~2017-06-02 21:12] MED LIST changes: -FAMO1TAB37 PO; +LEVO1IUD4; -ONDA1TAB16 PO; +ONDA4TAB15 PO
[2017-06-02 21:18] VITALS: BP 182/102; PULSE 82; RESP 18; TEMP 98.5; O2SAT 100
--- NOTE | 2017-06-02 21:24 | PD ---
HPI Chief Complaint: dental pain Time Seen by Provider: 21:24 Travel History International Travel<30 days: No Contact w/Intl Traveler<30days: No Traveled to known affect area: No History of Present Illness HPI 27-year-old female came to the emergency room with history of left lower molar pain that started this morning. It's progressively getting worse. Patient seemed to be very uncomfortable. She does not have a dentist. She took some hydrocodone 7.5 mg that she had about half not prior to coming to the emergency room and says that the pain is not getting any better. No history of fever or chills. She is otherwise healthy. I'll sign the stable. The pain is just there all the time. Gets worse when something touches the tooth. Pain is 10 out of 10. The pain is that #20 tooth. PFSH Past Medical History Narrative Medical List of her past medical, surgical, social and family history is reviewed from the nursing note. Cancer: No Cardiovascular Problems: No Diminished Hearing: No Endocrine: No Gastrointestinal Disorders: No Genitourinary: No Heparin Induced Thrombocytopen: No Immune Disorder: No Implanted Vascular Access Dvce: No Musculoskeletal: No Neurologic: No Psychiatric: No Reproductive: No Respiratory: No Immunizations Current: Yes Pancreatitis: Yes Sickle Cell Disease: No : 2 Miscarriage: 2 Past Surgical History Abdominal Surgery: No AICD: No Arteriovenous Shunt: No Cardiac Surgery: No Cholecystectomy: Yes Ear Surgery: No Endocrine Surgery: Yes (GALL BLADDER) Eye Surgery: No Genitourinary Surgery: No Gynecologic Surgery: No Insulin Pump: No Joint Replacement: No Neurologic Surgery: No Oral Surgery: No Pacemaker: No Tonsillectomy: Yes (with adnoids) Tympanostomy Tube: Yes Other Surgery: Yes (pancreatic stent then removed) Social History Alcohol Use: No Tobacco Use: No Substance Use: No Allergies-Medications (Allergen,Severity, Reaction): Coded Allergies: No Known Allergies (Unverified Adverse Reaction, Unknown, 06/02/17) Comments No known drug allergies. Reported Meds & Prescriptions Reported Meds & Active Scripts Active Ibuprofen 600 Mg Tab 600 Mg PO Q6H PRN Amoxicillin 500 Mg Cap 500 Mg PO BID 10 Days Reported Hydrocodone-Acetaminophen 7.5-300 Mg Tab 1 Tab PO Q6H PRN Kyleena (Levonorgestrel (Iud)) 17.5 Mcg/24 Hour (5 Years) Iud Narrative Medication List of her home medications reviewed from the nursing note. Review of Systems Except as stated in HPI: all other systems reviewed are Neg HENT: Positive: Dental Difficulties Physical Exam Narrative GENERAL: Awake, alert, moderate distress SKIN: Focused skin assessment warm/dry. HEAD: Atraumatic. Normocephalic. EYES: Pupils equal and round. No scleral icterus. No injection or drainage. ENT: No nasal bleeding or discharge. Mucous membranes pink and moist. Caries of #35 tooth. #20 tooth is cracked with some caries. It is tender to touch. NECK: Trachea midline. No JVD. CARDIOVASCULAR: Regular rate and rhythm. No murmur appreciated. RESPIRATORY: No accessory muscle use. Clear to auscultation. Breath sounds equal bilaterally. GASTROINTESTINAL: Abdomen soft, non-tender, nondistended. Hepatic and splenic margins not palpable. MUSCULOSKELETAL: No obvious deformities. No clubbing. No cyanosis. No edema. NEUROLOGICAL: Awake and alert. No obvious cranial nerve deficits. Motor grossly within normal limits. Normal speech. PSYCHIATRIC: Appropriate mood and affect; insight and judgment normal. Data Data Last Documented VS Orders Orders Amoxicillin (Trimox) (06/02/17 21:30) Ibuprofen (Motrin) (06/02/17 21:30) Bupivacaine Pf 0.5% Inj (Marcaine Pf 0.5 (06/02/17 21:30) Lidocaine 1% Inj (50 Ml) (Xylocaine 1% I (06/02/17 21:30) Ed Discharge Order (06/02/17 21:52) MDM Medical Decision Making Medical Screen Exam Complete: Yes Emergency Medical Condition: Yes Medical Record Reviewed: Yes Differential Diagnosis Dentalgia, caries, cracked tooth Narrative Course 9:45 PM patient is given ibuprofen and amoxicillin. I did a dental block with her consent. Please refer to my procedure note. Patient says she is feeling much better. She will be discharged home. Procedures Procedure Narrative Inferior alveolar dental block: A one:one mixture of bupivacaine 0.5% and lidocaine 1% was used to inject. Total of 4 mL of this mixture was infiltrated to achieve local anesthesia. The landmark was palpated with left finger from the other hand was used to inject the anesthetic. Patient tolerated the procedure well. There was minimal bleeding which was controlled by pressure. EKG Prior to Arrival: No Diagnosis Primary Impression: Dentalgia Additional Impressions: Cracked tooth Caries Referrals: Primary Care Physician Additional Instructions: Follow-up with a dentist tomorrow if possible. Take the medication as per the prescription direction. Take soft diet or liquid diet for next few hours due to the local anesthetic. Med/Other Pt SpecificInfo: Prescription(s) given Scripts Ibuprofen (Ibuprofen) 600 Mg Tab 600 MG PO Q6H Y for Pain/Inflammation, #40 TAB 0 Refills Prov: Angelo Newman MD 06/02/17 Amoxicillin (Amoxicillin) 500 Mg Cap 500 MG PO BID for Infection for 10 Days, #20 CAP 0 Refills Prov: Angelo Newman MD 06/02/17 Disposition: 01 DISCHARGE HOME Condition: Stable Angelo Newman MD Jun 02, 2017 21:24
[2017-06-02 21:27] VITALS: BP 182/102; PULSE 82; RESP 18; TEMP 98.5; O2SAT 100
[2017-06-02] MEDS ORDERED: HYDR-2376 PO (21:27)
[2017-06-02] MEDS ORDERED: IBUPROFEN 600 MG TAB PO ONE (21:30)
[2017-06-02] MEDS ORDERED: AMOXICILLIN (TRIHYDRATE) 500 MG CAP PO ONE (21:30)
[2017-06-02] MEDS ORDERED: LIDOCAINE HCL 1% 50 ML VIAL INFIL ONE (21:30)
[2017-06-02] MEDS ORDERED: BUPIVACAINE HCL PF 0.5% 30 ML VIAL NERV BLOCK ONE (21:30)
[2017-06-02] MEDS ORDERED: IBUP-232 PO (21:48)
[2017-06-02] MEDS ORDERED: AMOX500C PO (21:48)
[2017-06-02 21:49] VITALS: BP 145/94; PULSE 83; RESP 18; O2SAT 98
== END 2017-06-02 22:00 | disposition home or self-care (01) ==
LOC: PHEFT 21:12
DX: K03.81 Cracked tooth (principal); K02.9 Dental caries, unspecified
CPT/HCPCS: 64400